=== PATIENT | male | born 1975 | race Caucasian/White ===

== ENCOUNTER 2021-05-02 18:07 | Inpatient (IN) | payer OTHER, SELFPAY ==
[2021-05-02 23:23] VITALS: BMI 40.5
--- NOTE | 2021-05-03 00:44 | PC.ADMIT ---
A white, male patient aged 45 years was admitted to the [facility] as a CV at 1800 following referral from [facility] ED and [facility] Crisis. Pt hs no previous admissions here, but has numerous admissions elsewhere including: [facility], [facility], [facility], [facility], [facility], [place], and [facility]. Pt has a Briceño order that on April 14 2021. Pt self-presented to [facility] ED on 04/29/21 endorsing command AH telling him to hurt others and then hurt himself. Pt endorsed HI towards one of his two roommates, with thoughts to kill this person with a knife. Pt expressed thoughts to kill self via overdose of prescribed medications. Pt reported noncompliance with medications of several days; pt's VNA reported last medications administered evening of 04/27 and morning of 04/28/21. Pt is on Clozaril 350mg PO HS and Invega Sustenna 234mg IM Q4wks. Pt stated he will take Clozaril if it is ordered here, but he will not take it in the community. Pt stated he doesn't like Clozaril because it makes him feel tired and week . Pt stated that seroquel also makes him feel fatigued and flat. Other areas of [facility] assessment indicate pt may have not taken meds for several weeks . Pt was recently in [facility], spent 2 months in respite and was placed in the apartment with roommates. Pt reported that his mother is dying and that this is a recent stressor that has increased his symptoms of depression. Pt has a history of incarceration for A&B many times and related drug charges. Pt was incarcerated for assault and battery with a dangerous weapon (knife). Pt had probation in 2016, but denies current legal involvement. Pt has a history of Etoh, cocaine, opiates, marijuana; CABELLO and BAL were negative and pt denies current use. No history of substance abuse programs. Pt has a history of command AH/VH to hurt others and a history of delusions and grandeur. Pt has past history of delusions involving babies. Pt has a history of decompensating quickly when stopping medications. Pt was calm and cooperative during admission. When asked about goals for discharge pt stated he doesn't want to d/c to the community, but prefers d/c to a [facility] because it's better than here . Medical history includes diabetes and HTN. Pt was placed on 15 minute safety checks upon arrival and is resting in his bedroom at this time. [id number] done, initial treatment plan done and admission orders obtained.
--- NOTE | 2021-05-03 10:27 | HO.PSYADMNOT ---
HPI Date of Service: 05/03/21 Chief Complaint: bipolar disorder Sources of Information: patient interviewed, chart reviewed and crisis/core team assessment reviewed HPI Subjective Notes: Uribe Warning and Conditional Voluntary Narrative: Patient is a 45-year-old male with history of schizophrenia and antisocial personality disorder, on a Community Briceño, hx of assaultive behavior, incarceration and history of admission to [facility] Who presents for command auditory hallucinations to hurt others and hurt himself with HI towards his roommate in the face of being off his medications for several days. Patient reports that he was assigned this living situation by his PACT team Where his 2 roommates Heavily abuse crack cocaine. This past weekend as they ran out of money, they tried to force him to use his own money to buy them cocaine; when he refused they somehow made him leave the apartment in stool his belongings. Because patient has a VNA, he was unable to get his medications and has since been without. After a few days off medications patient soon developed auditory hallucinations. Patient started having homicidal ideations to stab his roommate and then kill himself. Patient currently endorses HI and AVH; however SI has now resolved. He wants to get back on his medications. He is ambivalent about being on clozapine because he says that it is given to him around 17:00 which makes him very tired and unable to enjoy the rest of the evening; however he is willing to get back on it after magazine writer expressed his outpatient psychiatrist is concerns. Patient said that he does not want to go back to his living situation and says that he will hurt his roommate if he does go back there. Patient says that instead he wants to go to a state facility, such as [facility]. Patient also says that he will make, Homicidal threats an order to get back into a state institution; he implies that Such comments are for secondary gain But also true. Patient says that on the unit he is safe and he has no intention or plans of hurting anyone. He also says that his HI is only directed to a specific person. Patient does point out that when threatened by his roommates he did not retaliate but got himself to walk away and that he self presented to the ED, wanting help, demonstrating that he is overall doing better than he has in the past. Past Psychiatric History: [facility] admission PACT team outpt psychiatrist Dr. Marisabel Briceño order numerous inpt psych admissions Medical Evaluation Reviewed: Hospitalist Liana Pending [facility] Medical History (Updated 05/03/21 @ 17:37 by Roni Sexton MD) Antisocial personality disorder Schizophrenia, paranoid type Family History: Deferred Social History: Born and raised in [place] and lived with biological mother, stepfather and half brothers Completed the 10th grade No history of work Some history of living in foster care Substance History: History of alcohol, cocaine and opiate up abuse; currently sober from all substances Trauma History: Patient did not want to discuss Diagnostics Vital Signs (24Hr): BMI result Body Mass Index 40.5 EKG EKG: reviewed EKG Comment: qtc WNL Meds/Allergies Meds Home Medications Acetaminophen (Acetaminophen 325 Mg Tablet) 650 mg PO Q6H PRN PRN Reason: Headache/Pain Mild Scale (1-3) Al Hydroxide/Mg Hydroxide (Magnesium Hydrox/Alum Hydrox 30 Ml Oral.Susp) 30 ml PO Q6H PRN PRN Reason: Heartburn/Nausea Atorvastatin Calcium (Atorvastatin Calcium 10 Mg Tablet) 10 mg PO DAILY GUSTAVO Benztropine Mesylate (Benztropine Mesylate 1 Mg Tablet) 2 mg PO BEDTIME GUSTAVO Benztropine Mesylate (Benztropine Mesylate 1 Mg Tablet) 1 mg PO BID PRN PRN Reason: EPS Clozapine (Clozapine 25 Mg Tablet) 12.5 mg PO BID GUSTAVO Cyanocobalamin (Cyanocobalamin (Vitamin B-12) 1,000 Mcg/Ml Vial) 1,000 mcg IM Q30D GUSTAVO Diphenhydramine HCl (Diphenhydramine Hcl 25 Mg Tablet) 50 mg PO Q4H PRN PRN Reason: agitation Fenofibrate (Fenofibrate 160 Mg Tablet) 160 mg PO DAILY GUSTAVO Folic Acid (Folic Acid 1 Mg Tablet) 4 mg PO DAILY GUSTAVO Haloperidol (Haloperidol 5 Mg Tablet) 5 mg PO Q4H PRN PRN Reason: agitation Hydroxyzine HCl (Hydroxyzine Hcl 25 Mg Tablet) 25 mg PO BEDTIME PRN PRN Reason: Anxiety Coachella Carbonate (Coachella Carbonate Er 450 Mg Tablet.Er) 450 mg PO BID GUSTAVO Loratadine (Loratadine 10 Mg Tablet) 10 mg PO DAILY GUSTAVO Lorazepam (Lorazepam 1 Mg Tablet) 2 mg PO Q4H PRN PRN Reason: agitation Magnesium Hydroxide (Milk Of Magnesia 30 Ml Oral.Susp) 30 ml PO DAILY PRN PRN Reason: Constipation Metformin HCl (Metformin Hcl 500 Mg Tablet) 500 [facility] Last Admin: 05/03/21 17:35 Dose: 500 mg Documented by: Multivitamins/Vitamin C (Multivitamin Tablet) 1 tab PO DAILY GUSTAVO Omeprazole (Omeprazole 20 Mg Capsule.Dr) 20 mg PO DAILY@0630 GUSTAVO Trazodone HCl (Trazodone Hcl 50 Mg Tablet) 50 mg PO BEDTIME PRN PRN Reason: Insomnia Valproic Acid (Valproic Acid 250 Mg Capsule) 250 mg PO DAILY GUSTAVO Valproic Acid (Valproic Acid 250 Mg Capsule) 500 mg PO BEDTIME GUSTAVO Allergies Allergies Allergy/AdvReac Type Severity Reaction Status Date / Time fluoxetine [From Prozac] AdvReac Agitated Verified 05/02/21 23:37 Mental Status Exam Mental Status Exam Narrative: Pt is alert and oriented; behavior is cooperative and calm; patient is not in distress; dressed in casual attire, obese, unkempt but adequate hygiene; mood is described as ok and affect mildly irritable; eye contact appropriate; Speech is normal rate, volume and prosody and not pressured; no psychomotor agitation/retardation present; right hand tremor noticeable as is symptoms of perioral TD; thought process is organized and goal directed; Thought content is Anger towards roommate, where he is going to live, treatment; otherwise pertinent to relevant topics; No delusional content expressed; Positive for homicidal ideation towards roommate with expressed intentions; patient endorses auditory hallucinations, command in nature; Patients insight and judgment Are impaired Assessment & Plan Assessment & Plan (1) Schizophrenia, paranoid type: Status: Acute Code(s): F20.0 - Paranoid schizophrenia (2) Antisocial personality disorder: Status: Acute Code(s): F60.2 - Antisocial personality disorder Plan Patient is a 45-year-old male with history of schizophrenia and antisocial personality disorder, on a Community Briceño, hx of assaultive behavior, incarceration and history of admission to [facility] Who presents for command auditory hallucinations to hurt others and hurt himself with HI towards his roommate in the face of being off his medications for several days. -seems the patient is off his meds through no fault of his own, being pushed out of his living situation by his roommates demanded he give the money for crack cocaine; once homeless he lost access to his VNA -currently patient has HI and command auditory hallucinations. He says he will be safe on the unit has no intention of hurting anyone here and that his AHI is specific towards his roommate -He agrees to restart his medications; he is ambivalent about clozapine however agrees to continue but asks if he can be transferred to evening time so that he is not sedated during the day. -magazine writer talked to Dr. Zohra donaldson who reports that on medications patient Has been successful in the community however off his medications he can be dangerous PLAN: CV Q 15 minute checks MEDS: Restart Depakote: Will start Depakote immediate release To 50 mg in the a.m. and 500 mg Q.h.s. -Need to find out if it is long-acting -home dose 250mg AM and 1500mg qhs Restart lithium ER 450 mg b.i.d. -home dose is 300 mg q.a.m. and 750 mg q.h.s. Restart clozapine 12.5 mg b.i.d. and titrate to home dose; If tolerates will titrate as quickly as patient can as he has only been off for few days -home dose to 50 mg q.h.s. -and see q.weekly for now but likely can quickly go back to either q.2 weeks or Q monthly Continue Invega Sustenna 234 mg q.4 weeks; Not sure when next due Continue Cogentin 2 mg q.h.s. new Continue trazodone 50 mg q.h.s. p.r.n. Continue Cyanocobalamin, loratadine, folic acid, phenyl fibrate Continue atorvastatin Continue omeprazole continue metformin 500 mg b.i.d. Labs from [facility] reviewed CBC, BUN/creatinine, calcium, lytes, LFTs all grossly within normal limits with some mild-mod normocytic anemia Valproic acid a 0.0 Coachella level 0.3 COVID negative Patient educated on: diagnosis, medication risk/benefits and substance abuse Informed Consent: understands Reason for continued inpatient stay Substantial Risk for: harm to self, harm to others and rapid decompensation
--- NOTE | 2021-05-03 11:12 | P.CONHOSP_ITS ---
History of Present Illness Data of Consult Service Date: 05/03/21 Primary Care Provider: Unknown Physician HPI Reason for consult: Routine Medical H&P This is a 45 yo M admitted to the inpatient psych unit. Medical consult requested for routine medical H&P per protocol. Patient is seen and examined in the exam room. They deny any medical complaints at this time. PMH Pre-diabetes -- reports he take metformin PSH Explatory laparotomy with bowel resection after he swallowed a razor FH He is unaware of any medical problems in the family SH Denies tobacco, alcohol or illicit substance use Review of Systems Review of Systems: negative except HPI PMFSH Social History Household Members: Other Household Members Other:: apartment with 2 room mates Housing: Apartment Do you presently have visiting nurse or other home services: Yes Patient Tobacco Use Status: Former Tobacco user Quit Date: over 1 year ago Tobacco use type: Cigarette Smoked in Last 30 Days: Yes e-Cigarette/Vaping Use: Never Used Patient Interested in Nicotine Replacement: No (pt declines) Patient Given Instructions on How to Stop Smoking: No Date Education Initiated: 05/02/21 Second Hand Smoke Exposure: Yes Use of substances other than those prescribed or required for medical reasons: No Last Used Substance: Unknown Currently Displaying Signs/Symptoms of Drug Intoxication Withdrawal: No Any prior treatment program specific to substance use: No (unknown) Have you been hit, kicked, punched, or otherwise hurt by someone within the past year? If so, by whom?: No Do you feel safe in your current relationship?: No Current Relationship Is there a partner from a previous relationship who is making you feel unsafe now?: No Are you made to feel afraid or neglected: No Spiritual Healthcare Practices: None Zoroastrian Healthcare Practices: None Cultural Healthcare Practices: None Advance Directives: No Advance Directives Information Provided: No Advance Directives on File: No Do you have thoughts of harming others: None Do you have a plan to hurt others: No Plan Recently lost weight without trying: No Eating poorly because of decreased appetite: No Nutrition Risks: No Nutritional Risk Poor oral hygiene: Yes Meds Allergies Allergy/AdvReac Type Severity Reaction Status Date / Time fluoxetine [From Prozac] AdvReac Agitated Verified 05/02/21 23:37 Active Medications: Current Medications Acetaminophen (Acetaminophen 325 Mg Tablet) 650 mg PO Q6H PRN PRN Reason: Headache/Pain Mild Scale (1-3) Al Hydroxide/Mg Hydroxide (Magnesium Hydrox/Alum Hydrox 30 Ml Oral.Susp) 30 ml PO Q6H PRN PRN Reason: Heartburn/Nausea Diphenhydramine HCl (Diphenhydramine Hcl 25 Mg Tablet) 50 mg PO Q4H PRN PRN Reason: agitation Haloperidol (Haloperidol 5 Mg Tablet) 5 mg PO Q4H PRN PRN Reason: agitation Hydroxyzine HCl (Hydroxyzine Hcl 25 Mg Tablet) 25 mg PO BEDTIME PRN PRN Reason: Anxiety Lorazepam (Lorazepam 1 Mg Tablet) 2 mg PO Q4H PRN PRN Reason: agitation Magnesium Hydroxide (Milk Of Magnesia 30 Ml Oral.Susp) 30 ml PO DAILY PRN PRN Reason: Constipation Trazodone HCl (Trazodone Hcl 50 Mg Tablet) 50 mg PO BEDTIME PRN PRN Reason: Insomnia Physical Exam Vital Signs and Narrative: Vital Signs: BMI result Body Mass Index 40.5 Const: Other: General - no acute distress, appears comfortable Cardiovascular - regular rate and rhythm, S1-S2 Lungs - normal respiratory effort, clear to auscultation bilaterally, no wheezing Abdomen - soft, nontender, no rebound or guarding Extremities - no edema bilaterally Neuro - awake and alert, no focal deficits; cn 2-12 in tact bilaterally Assessment and Plan (1) Routine medical exam: Status: Acute Plan Medical consultation sought for routine medical H&P. Patient has no active medical issues. Reports pre-diabetes, on metformin -- unclear how long he has been taking it. Would recommend to check A1C and start metformin at his home dose. Patient has been counseled on age appropriate health maintenance as an outpatient. Continue care per primary team. Will sign off. Please re-consult if any issues arise.
[2021-05-03] MEDS: Valproic Acid 250 MG CAPSULE PO (14:32)
[2021-05-03] MEDS: Lithium Carbonate ER 450 MG TABLET.ER PO ×2 (14:32→19:46)
[2021-05-03] MEDS: metFORMIN HCl 500 MG TABLET PO (17:35)
[2021-05-03 17:54] LABS: MANUAL DIFF FLAG NO
[2021-05-03 17:55] LABS: Basophils Percent Auto 0.4 % (0-2); Eosinophils Absolute Auto 0.2 X10*3/uL (0.0-0.4); Eosinophils Percent Auto 1.4 % (0-4); Hematocrit 37.3 % (42.0-52.0); Hemoglobin 11.7 g/dl (14.0-18.0); Imm Gran Abs Auto 0.06 X10*3/uL (0.00-0.03); Imm Gran Pct Auto 0.5 % (0.0-0.4); Lymphocytes Percent Auto 27.1 % (20-40); Mean Corpuscular HGB Conc 31.4 g/dl (31.0-36.0); Mean Corpuscular Hemoglobin 26.9 pg (27.0-33.0); Mean Corpuscular Volume 85.7 fL (80.0-98.0); Mean Platelet Volume 10.2 fL (9.4-12.4); Monocytes Absolute Auto 0.7 X10*3/uL (0.1-1.2); Monocytes Percent Auto 6.1 % (2-11); Neutrophils Absolute Auto 7.1 x10*3/uL (2.0-8.3); Neutrophils Percent Auto 64.5 % (45-73); Platelet Count 291 X10*3/uL (160-400); Red Blood Count 4.35 X10*6/uL (4.60-5.80); Red Cell Distribution Width 15.4 % (11.0-16.0); White Blood Count 11.1 X10*3/uL (4.8-10.8)
[2021-05-03 19:00] VITALS: BP 123/59; PULSE 117; TEMP 36.2; O2SAT 94
[2021-05-03] MEDS: Valproic Acid 250 MG CAPSULE 500 MG PO (19:45)
[2021-05-03] MEDS: cloZAPine 25 MG TABLET 12.5 MG PO (19:45)
[2021-05-03] MEDS: Benztropine Mesylate 1 MG TABLET 2 MG PO (19:46)
[2021-05-03] MEDS: Acetaminophen 325 MG TABLET 650 MG PO (19:47)
[2021-05-03] MEDS: traZODone HCL 50 MG TABLET PO (19:50)
[2021-05-04 06:00] VITALS: BP 152/73; PULSE 106; RESP 16; TEMP 36.5; O2SAT 98
[2021-05-04] MEDS: Omeprazole 20 MG CAPSULE.DR PO (06:39)
[2021-05-04 07:00] VITALS: BMI 39.2
[2021-05-04] MEDS: Valproic Acid 250 MG CAPSULE PO (09:07)
[2021-05-04] MEDS: Folic Acid 1 MG TABLET 4 MG PO (09:07)
[2021-05-04] MEDS: metFORMIN HCl 500 MG TABLET PO (09:07)
[2021-05-04] MEDS: Lithium Carbonate ER 450 MG TABLET.ER PO (09:07)
[2021-05-04] MEDS: Multivitamin TABLET 1 TAB PO (09:07)
[2021-05-04] MEDS: cloZAPine 25 MG TABLET 12.5 MG PO (09:07)
[2021-05-04] MEDS: Fenofibrate 160 MG TABLET PO (09:07)
[2021-05-04] MEDS: Loratadine 10 MG TABLET PO (09:07)
[2021-05-04] MEDS: Atorvastatin Calcium 10 MG TABLET PO (09:08)
[2021-05-04 09:30] LABS: Alanine Aminotransferase 45 U/L (0-40); Albumin Level 4.6 g/dL (3.5-5.0); Alkaline Phosphatase 49 U/L (39-117); Anion Gap 15 (12-20); Aspartate Amino Transferase 33 U/L (5-37); Bilirubin Total 0.2 mg/dL (0.0-1.0); Blood Urea Nitrogen 16 mg/dL (9-16); Calcium 10.3 mg/dL (8.4-10.2); Carbon Dioxide 24 mmol/L (22-29); Chloride 107 mmol/L (96-108); Cholesterol 137 mg/dL; Creatinine Clr Calc Pharmacy 162.2; Estimated Glomerular Filt Rate > 60; Glucose Fasting 104 mg/dL (60-99); HDL Cholesterol 34 mg/dL; LDL Cholesterol Calculated 50 mg/dl; Potassium 4.8 mmol/L (3.3-5.1); Sodium 141 mmol/L (135-145); Total Protein 7.6 g/dL (6.5-8.0); Triglycerides 266 mg/dL
--- NOTE | 2021-05-04 10:21 | P.PNPSI_ITS ---
Subjective Subjective Date of Service: 05/04/21 Reason For Visit: bipolar disorder Interim History: Patient tells bid writer that he is going to refuse all his medications. Patient expressed being off put by having a blood draw and also by having a.m. clozapine scheduled and the idea that it is only for titration purposes and will be switched to bedtime, would not ameliorate. He says he wants to have a chance to see how he does off medications for a while. Log Tumbler discussed how patient's outpatient team who knows him well and some move known him for years collectively agree that when patient is off the specific medications, he quickly decompensates and things do not go well. He says all the same he wants to be off medications and that he is going to put in a 3 day notice. He said maybe it will be a diving judge from out of state who does not care about the community and will let go a homicidal maniac. Patient still harbors homicidal Plans towards his apartment roommate Who reportedly kicked him out for not coalescing and buying drugs. Log Tumbler again reiterated his history of medications and patient said he will consider it may be continuing but he does not think so. +AH; not suicidal Mental Status Exam Mental Status Exam Narrative: Pt is alert and oriented; behavior is cooperative and calm; patient is not in distress; dressed in hospital gown, obese, unkempt but adequate hygiene; mood is described as ok and affect a little expansive; eye contact appropriate; Speech is normal rate, volume and prosody and not pressured; no psychomotor agitation/retardation present; right hand tremor noticeable as is symptoms of jennifer-oral TD;? thought process is organized and goal directed; Thought content is anger towards roommate, not wanting medicatons; otherwise pertinent to releva nt topics; No delusional content expressed; Positive for homicidal ideation towards roommate with expressed intentions; no SI; patient endorses auditory hallucinations, command in nature;? Patients insight and judgment Are impaired Diagnostics Vital Signs (24Hr): Vital Signs - 24 hr 05/03/21 19:00 05/04/21 06:00 Temperature 97.1 F 97.7 F Pulse Rate 117 H 106 H Respiratory Rate 16 Blood Pressure 123/59 L 152/73 H Pulse Oximetry 94 98 BMI result Body Mass Index 40.5 Labs Results: 05/03/21 17:43 05/04/21 08:05 Labs: Laboratory Results - last 48 hr 05/03/21 05/04/21 17:43 08:05 WBC 11.1 H RBC 4.35 L Hgb 11.7 L Hct 37.3 L MCV 85.7 MCH 26.9 L MCHC 31.4 RDW 15.4 Plt Count 291 MPV 10.2 Immature Gran % (Auto) 0.5 H Neut % (Auto) 64.5 Lymph % (Auto) 27.1 [place] % (Auto) 6.1 Eos % (Auto) 1.4 Baso % (Auto) 0.4 Lymph # (Auto) 3.0 [place] # (Auto) 0.7 Eos # (Auto) 0.2 Baso # (Auto) 0.0 Abs Immat Gran (auto) 0.06 H Absolute Neuts (auto) 7.1 Absolute Nucleated RBC 0.000 Nucleated RBC % (auto) 0.0 Sodium 141 Potassium 4.8 Chloride 107 Carbon Dioxide 24 Anion Gap 15 BUN 16 Creatinine 0.82 Estim Creat Clear Calc 162.2 Estimated GFR > 60 Fasting Glucose 104 H Calcium 10.3 H Total Bilirubin 0.2 AST 33 ALT 45 H Alkaline Phosphatase 49 Total Protein 7.6 Albumin 4.6 Triglycerides 266 Cholesterol 137 LDL Cholesterol, Calc 50 HDL Cholesterol 34 Medications Medications Current Medications Acetaminophen (Acetaminophen 325 Mg Tablet) 650 mg PO Q6H PRN PRN Reason: Headache/Pain Mild Scale (1-3) Last Admin: 05/03/21 19:47 Dose: 650 mg Documented by: Al Hydroxide/Mg Hydroxide (Magnesium Hydrox/Alum Hydrox 30 Ml Oral.Susp) 30 ml PO Q6H PRN PRN Reason: Heartburn/Nausea Atorvastatin Calcium (Atorvastatin Calcium 10 Mg Tablet) 10 mg PO DAILY [facility] Last Admin: 05/04/21 09:08 Dose: 10 mg Documented by: Benztropine Mesylate (Benztropine Mesylate 1 Mg Tablet) 2 mg PO BEDTIME [facility] Last Admin: 05/03/21 19:46 Dose: 2 mg Documented by: Benztropine Mesylate (Benztropine Mesylate 1 Mg Tablet) 1 mg PO BID PRN PRN Reason: EPS Clozapine (Clozapine 25 Mg Tablet) 12.5 mg PO DAILY [facility] Clozapine (Clozapine 25 Mg Tablet) 25 mg PO BEDTIME [facility] Cyanocobalamin (Cyanocobalamin (Vitamin B-12) 1,000 Mcg/Ml Vial) 1,000 mcg IM Q30D [facility] Diphenhydramine HCl (Diphenhydramine Hcl 25 Mg Tablet) 50 mg PO Q4H PRN PRN Reason: agitation Fenofibrate (Fenofibrate 160 Mg Tablet) 160 mg PO DAILY [facility] Last Admin: 05/04/21 09:07 Dose: 160 mg Documented by: Folic Acid (Folic Acid 1 Mg Tablet) 4 mg PO DAILY [facility] Last Admin: 05/04/21 09:07 Dose: 4 mg Documented by: Haloperidol (Haloperidol 5 Mg Tablet) 5 mg PO Q4H PRN PRN Reason: agitation Hydroxyzine HCl (Hydroxyzine Hcl 25 Mg Tablet) 25 mg PO BEDTIME PRN PRN Reason: Anxiety Zebulon Carbonate (Zebulon Carbonate Er 450 Mg Tablet.Er) 450 mg PO BID [facility] Last Admin: 05/04/21 09:07 Dose: 450 mg Documented by: Loratadine (Loratadine 10 Mg Tablet) 10 mg PO DAILY [facility] Last Admin: 05/04/21 09:07 Dose: 10 mg Documented by: Lorazepam (Lorazepam 1 Mg Tablet) 2 mg PO Q4H PRN PRN Reason: agitation Magnesium Hydroxide (Milk Of Magnesia 30 Ml Oral.Susp) 30 ml PO DAILY PRN PRN Reason: Constipation Metformin HCl (Metformin Hcl 500 Mg Tablet) 500 mg PO BIDWM [facility] Last Admin: 05/04/21 09:07 Dose: 500 mg Documented by: Multivitamins/Vitamin C (Multivitamin Tablet) 1 tab PO DAILY [facility] Last Admin: 05/04/21 09:07 Dose: 1 tab Documented by: Omeprazole (Omeprazole 20 Mg Capsule.) 20 mg PO DAILY@0630 [facility] Last Admin: 05/04/21 06:39 Dose: 20 mg Documented by: Paliperidone Palmitate (Paliperidone Palmitate 234 Mg/1.5 Ml Syringe) 234 mg IM Q30D [facility] Trazodone HCl (Trazodone Hcl 50 Mg Tablet) 50 mg PO BEDTIME PRN PRN Reason: Insomnia Last Admin: 05/03/21 19:50 Dose: 50 mg Documented by: Valproic Acid (Valproic Acid 250 Mg Capsule) 250 mg PO DAILY [facility] Last Admin: 05/04/21 09:07 Dose: 250 mg Documented by: Valproic Acid (Valproic Acid 250 Mg Capsule) 500 mg PO BEDTIME [facility] Last Admin: 05/03/21 19:45 Dose: 500 mg Documented by: Allergies Allergies Allergy/AdvReac Type Severity Reaction Status Date / Time fluoxetine [From Prozac] AdvReac Agitated Verified 05/02/21 23:37 Assessment & Plan Assessment & Plan (1) Schizophrenia, paranoid type: Status: Acute Code(s): F20.0 - Paranoid schizophrenia (2) Antisocial personality disorder: Status: Acute Code(s): F60.2 - Antisocial personality disorder Plan Patient is a 45-year-old male with history of schizophrenia and antisocial personality disorder, on a Community Briceño, hx of assaultive behavior, incarceration and history of admission to [facility] Who presents for command auditory hallucinations to hurt others and hurt himself with HI towards his roommate in the face of being off his medications for several days. -seems the patient is off his meds through no fault of his own, being pushed out of his living situation by his roommates demanded he give the money for crack cocaine; once homeless he lost access to his VNA -currently patient has HI and command auditory hallucinations. He says he will be safe on the unit has no intention of hurting anyone here and that his HI is specific towards his roommate -He agrees to restart his medications; he is ambivalent about clozapine however agrees to continue but asks if he can be transferred to evening time so that he is not sedated during the day. -bid writer talked to Dr. Zohra donaldson who reports that on medications patient Has been successful in the community however off his medications he can be dangerous 05/04 Patient says he is going to refuse all his medication; remains with HI towards apartment-mate; Present -continuing to seek collateral from outpatient providers and providers who cared for patient while at [facility]; have several calls placed to outpatient VNA/pact team Rosalie [phone] PLAN: 3 day notice Q 15 minute checks MEDS: Restart Depakote: Will start Depakote immediate release -Need to find out if it is long-acting -home dose 250mg AM and 1500mg qhs Restart lithium ER 450 mg b.i.d. -home dose is 300 mg q.a.m. and 750 mg q.h.s. Change clozapine 25mg Qhs (pt does not want in AM since makes drowsy); if takes and tolerates will titrate as quickly as patient can as he has only been off for few days -home dose to 50 mg q.h.s. -and see q.weekly for now but likely can quickly go back to either q.2 weeks or Q monthly Continue Invega Sustenna 234 mg q.4 weeks; Not sure when next due Continue Cogentin 2 mg q.h.s. new Continue trazodone 50 mg q.h.s. p.r.n. Continue Cyanocobalamin, loratadine, folic acid, phenyl fibrate Continue atorvastatin Continue omeprazole continue metformin 500 mg b.i.d. Labs from [facility] reviewed CBC, BUN/creatinine, calcium, lytes, LFTs all grossly within normal limits with some mild-mod normocytic anemia Valproic acid a 0.0 Zebulon level 0.3 COVID negative I spent minutes with the patient and/or on the patient floor today, greater than?50% of which was spent counseling/coordinating care. Patient educated on: diagnosis and medication risk/benefits Informed Consent: understands Reason for contiued inpatient stay Substantial Risk for: harm to others and rapid decompensation
--- NOTE | 2021-05-04 13:29 | PC.NURSE ---
Pt signed a 3-day notice on May 04 (05/04/2021) and it will be up on May 09 (05/09/2021)
[2021-05-04 20:01] VITALS: BP 113/67; PULSE 98; RESP 17; TEMP 36.3; O2SAT 97
[2021-05-05] MEDS: Acetaminophen 325 MG TABLET 650 MG PO ×2 (02:02→21:28)
[2021-05-05 06:00] VITALS: BP 117/75; PULSE 97; TEMP 36.4; O2SAT 97
--- NOTE | 2021-05-05 13:30 | HO.PSYCHPN ---
Subjective Subjective Date of Service: 05/05/21 Reason For Visit: bipolar disorder Subjective Notes: Briceño Order, Conditional Voluntary and 3 Day Medical Problems Affecting Mental Status: No Interim History: Patient's case extensively and repeatedly reviewed with staff Dr. Sexton. The patient has been refusing clozapine lithium and Depakote. Unclear when he last had an injection Invega there is contradictory information. The patient has been stating that God is telling him he does need to be on medication he was not threatening or agitated when seen. Patient did eventually take a dose of consolidated Depakote the afternoon history of severe violence aggression when off of mood stabilizing agents and antipsychotics. Patient reportedly responds best to a combination of clozapine and mood stabilizing agents Medication Compliance: Intermittent Side effects from medications: No Attending Groups: No Review of Systems Acute medical concerns: No Mental Status Exam Mental Status Exam Patient Appearance: Disheveled Patient Orientation: Person, Place and Situation Level of Consciousness: Awake Patient Behavior: Talkative Mood Description: Constricted, Blunted and Apprehensive Affect Description: Blunted Delusions: Bizarre (God is telling him he does not need to take medication) Thought Process: Illogical and Linear Thought Content: positive for Poverty of Content, positive for Suicidal Ideation (Denies current) and positive for Homicidal Ideation (Denies currently) Judgement: Poor Judgement and Insight: Mild oral facial dyskinesia noted patient aware has Briceño order states he does not need to be on medication Diagnostics Vital Signs (24Hr): Vital Signs - 24 hr 05/04/21 20:01 05/05/21 06:00 Temperature 97.3 F 97.5 F Pulse Rate 98 97 Respiratory Rate 17 Blood Pressure 113/67 117/75 Pulse Oximetry 97 97 BMI result Body Mass Index 39.2 Labs Results: 05/03/21 17:43 05/04/21 08:05 Labs: Laboratory Results - last 48 hr 05/03/21 05/04/21 17:43 08:05 WBC 11.1 H RBC 4.35 L Hgb 11.7 L Hct 37.3 L MCV 85.7 MCH 26.9 L MCHC 31.4 RDW 15.4 Plt Count 291 MPV 10.2 Immature Gran % (Auto) 0.5 H Neut % (Auto) 64.5 Lymph % (Auto) 27.1 [place] % (Auto) 6.1 Eos % (Auto) 1.4 Baso % (Auto) 0.4 Lymph # (Auto) 3.0 [place] # (Auto) 0.7 Eos # (Auto) 0.2 Baso # (Auto) 0.0 Abs Immat Gran (auto) 0.06 H Absolute Neuts (auto) 7.1 Absolute Nucleated RBC 0.000 Nucleated RBC % (auto) 0.0 Sodium 141 Potassium 4.8 Chloride 107 Carbon Dioxide 24 Anion Gap 15 BUN 16 Creatinine 0.82 Estim Creat Clear Calc 162.2 Estimated GFR > 60 Fasting Glucose 104 H Calcium 10.3 H Total Bilirubin 0.2 AST 33 ALT 45 H Alkaline Phosphatase 49 Total Protein 7.6 Albumin 4.6 Triglycerides 266 Cholesterol 137 LDL Cholesterol, Calc 50 HDL Cholesterol 34 Medications Medications Current Medications Acetaminophen (Acetaminophen 325 Mg Tablet) 650 mg PO Q6H PRN PRN Reason: Headache/Pain Mild Scale (1-3) Last Admin: 05/05/21 02:02 Dose: 650 mg Documented by: Al Hydroxide/Mg Hydroxide (Magnesium Hydrox/Alum Hydrox 30 Ml Oral.Susp) 30 ml PO Q6H PRN PRN Reason: Heartburn/Nausea Atorvastatin Calcium (Atorvastatin Calcium 10 Mg Tablet) 10 mg PO DAILY [facility] Last Admin: 05/05/21 08:47 Dose: Not Given Documented by: Benztropine Mesylate (Benztropine Mesylate 1 Mg Tablet) 2 mg PO BEDTIME [facility] Last Admin: 05/04/21 20:15 Dose: Not Given Documented by: Benztropine Mesylate (Benztropine Mesylate 1 Mg Tablet) 1 mg PO BID PRN PRN Reason: EPS Clozapine (Clozapine 25 Mg Tablet) 25 mg PO BEDTIME [facility] Last Admin: 05/04/21 20:15 Dose: Not Given Documented by: Cyanocobalamin (Cyanocobalamin (Vitamin B-12) 1,000 Mcg/Ml Vial) 1,000 mcg IM Q30D [facility] Diphenhydramine HCl (Diphenhydramine Hcl 25 Mg Tablet) 50 mg PO Q4H PRN PRN Reason: agitation Divalproex Sodium (Divalproex Sodium Er 500 Mg Tab.Er.24h) 1,000 mg PO DAILY@1300 [facility] Fenofibrate (Fenofibrate 160 Mg Tablet) 160 mg PO DAILY [facility] Last Admin: 05/05/21 08:47 Dose: Not Given Documented by: Folic Acid (Folic Acid 1 Mg Tablet) 4 mg PO DAILY [facility] Last Admin: 05/05/21 08:47 Dose: Not Given Documented by: Haloperidol (Haloperidol 5 Mg Tablet) 10 mg PO Q4H PRN PRN Reason: agitation Hydroxyzine HCl (Hydroxyzine Hcl 25 Mg Tablet) 25 mg PO BEDTIME PRN PRN Reason: Anxiety Crumpler Carbonate (Crumpler Carbonate Er 450 Mg Tablet.Er) 450 mg PO BID [facility] Last Admin: 05/05/21 08:47 Dose: Not Given Documented by: Loratadine (Loratadine 10 Mg Tablet) 10 mg PO DAILY [facility] Last Admin: 05/05/21 08:47 Dose: Not Given Documented by: Lorazepam (Lorazepam 1 Mg Tablet) 2 mg PO Q4H PRN PRN Reason: agitation Magnesium Hydroxide (Milk Of Magnesia 30 Ml Oral.Susp) 30 ml PO DAILY PRN PRN Reason: Constipation Metformin HCl (Metformin Hcl 500 Mg Tablet) 500 mg PO BIDWM [facility] Last Admin: 05/05/21 08:47 Dose: Not Given Documented by: Multivitamins/Vitamin C (Multivitamin Tablet) 1 tab PO DAILY [facility] Last Admin: 05/05/21 08:47 Dose: Not Given Documented by: Olanzapine (Olanzapine 10 Mg Tablet) 20 mg PO BID PRN PRN Reason: agitation Omeprazole (Omeprazole 20 Mg Capsule.) 20 mg PO DAILY@0630 [facility] Last Admin: 05/05/21 06:29 Dose: Not Given Documented by: Paliperidone Palmitate (Paliperidone Palmitate 234 Mg/1.5 Ml Syringe) 234 mg IM Q30D [facility] Trazodone HCl (Trazodone Hcl 50 Mg Tablet) 50 mg PO BEDTIME PRN PRN Reason: Insomnia Last Admin: 05/03/21 19:50 Dose: 50 mg Documented by: Allergies Allergies Allergy/AdvReac Type Severity Reaction Status Date / Time fluoxetine [From Prozac] AdvReac Agitated Verified 05/02/21 23:37 Assessment & Plan Assessment & Plan (1) Schizophrenia, paranoid type: Status: Acute Code(s): F20.0 - Paranoid schizophrenia Assessment and Plan: Patient when seen not threatening or aggressive but marked lack of insight into need for treatment. Reported history obtained by Dr. Sexton suggest patient rapidly becomes wanted to move medication and for history of extreme violence and paranoia and assaultive behavior. Case reviewed repeatedly consolidated Depakote and lithium doses medication to be given IM if patient refuses lithium Depakote or clozapine. Need clarifying information is as possible when patient's last dose of long-acting Invega was given safety issues reviewed with nursing staff and other psychiatric staff (2) Antisocial personality disorder: Status: Acute Code(s): F60.2 - Antisocial personality disorder Plan Patient is a 45-year-old male with history of schizophrenia and antisocial personality disorder, on a Community Briceño, hx of assaultive behavior, incarceration and history of admission to [facility] Who presents for command auditory hallucinations to hurt others and hurt himself with HI towards his roommate in the face of being off his medications for several days. -seems the patient is off his meds through no fault of his own, being pushed out of his living situation by his roommates demanded he give the money for crack cocaine; once homeless he lost access to his VNA -currently patient has HI and command auditory hallucinations. He says he will be safe on the unit has no intention of hurting anyone here and that his AHI is specific towards his roommate -He agrees to restart his medications; he is ambivalent about clozapine however agrees to continue but asks if he can be transferred to evening time so that he is not sedated during the day. -telegraphic typewriter mechanic talked to Dr. Zohra donaldson who reports that on medications patient Has been successful in the community however off his medications he can be dangerous Rosalie [phone] PLAN: CV Q 15 minute checks MEDS: Restart Depakote: Will start Depakote immediate release To 50 mg in the a.m. and 500 mg Q.h.s. -Need to find out if it is long-acting -home dose 250mg AM and 1500mg qhs Restart lithium ER 450 mg b.i.d. -home dose is 300 mg q.a.m. and 750 mg q.h.s. Restart clozapine 12.5 mg b.i.d. and titrate to home dose; If tolerates will titrate as quickly as patient can as he has only been off for few days -home dose to 50 mg q.h.s. -and see q.weekly for now but likely can quickly go back to either q.2 weeks or Q monthly Continue Invega Sustenna 234 mg q.4 weeks; Not sure when next due Continue Cogentin 2 mg q.h.s. new Continue trazodone 50 mg q.h.s. p.r.n. Continue Cyanocobalamin, loratadine, folic acid, phenyl fibrate Continue atorvastatin Continue omeprazole continue metformin 500 mg b.i.d. Labs from [facility] reviewed CBC, BUN/creatinine, calcium, lytes, LFTs all grossly within normal limits with some mild-mod normocytic anemia Valproic acid a 0.0 [place] level 0.3 COVID negative I spent minutes with the patient and/or on the patient floor today, greater than?50% of which was spent counseling/coordinating care. Reason for contiued inpatient stay Substantial Risk for: harm to others and rapid decompensation
[2021-05-05] MEDS: HaloperidoL 5 MG TABLET 10 MG PO ×2 (14:33→20:48)
[2021-05-05] MEDS: Divalproex Sodium ER 500 MG TAB.ER.24H 1000 MG PO (14:37)
[2021-05-05] MEDS: metFORMIN HCl 500 MG TABLET PO (17:15)
[2021-05-05 18:00] VITALS: BP 131/65; PULSE 89; TEMP 36.4
[2021-05-05] MEDS: traZODone HCL 50 MG TABLET PO ×2 (20:47→21:56)
[2021-05-05] MEDS: Benztropine Mesylate 1 MG TABLET 2 MG PO (20:48)
[2021-05-06] MEDS: Omeprazole 20 MG CAPSULE.DR PO (06:39)
[2021-05-06 08:59] VITALS: BP 118/61; PULSE 93; RESP 17; TEMP 36.4; O2SAT 96
[2021-05-06] MEDS: Multivitamin TABLET 1 TAB PO (09:02)
[2021-05-06] MEDS: Loratadine 10 MG TABLET PO (09:02)
[2021-05-06] MEDS: Atorvastatin Calcium 10 MG TABLET PO (09:02)
[2021-05-06] MEDS: Folic Acid 1 MG TABLET 4 MG PO (09:02)
[2021-05-06] MEDS: Fenofibrate 160 MG TABLET PO (09:02)
[2021-05-06] MEDS: metFORMIN HCl 500 MG TABLET PO ×2 (09:02→17:11)
[2021-05-06] MEDS: Lithium Carbonate ER 450 MG TABLET.ER 900 MG PO (09:03)
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
[2021-05-06] MEDS: Divalproex Sodium ER 500 MG TAB.ER.24H 1000 MG PO (12:42)
[2021-05-06 18:00] VITALS: BP 158/75; PULSE 83; RESP 18; TEMP 36.6; O2SAT 97
[2021-05-06] MEDS: Benztropine Mesylate 1 MG TABLET 2 MG PO (20:57)
[2021-05-06] MEDS: HaloperidoL 5 MG TABLET 10 MG PO (20:57)
[2021-05-07 06:00] VITALS: BP 124/76; PULSE 96; RESP 18; TEMP 36.5; O2SAT 97
[2021-05-07] MEDS: Omeprazole 20 MG CAPSULE.DR PO (06:04)
[2021-05-07] MEDS: Fenofibrate 160 MG TABLET PO (07:53)
[2021-05-07] MEDS: metFORMIN HCl 500 MG TABLET PO ×2 (07:53→18:05)
[2021-05-07] MEDS: Loratadine 10 MG TABLET PO (07:53)
[2021-05-07] MEDS: Lithium Carbonate ER 450 MG TABLET.ER 900 MG PO (07:53)
[2021-05-07] MEDS: Atorvastatin Calcium 10 MG TABLET PO (07:54)
[2021-05-07] MEDS: Multivitamin TABLET 1 TAB PO (07:54)
[2021-05-07] MEDS: Folic Acid 1 MG TABLET 4 MG PO (07:54)
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
[2021-05-07] MEDS: Divalproex Sodium ER 500 MG TAB.ER.24H 1000 MG PO (12:48)
[2021-05-07] MEDS: HaloperidoL 5 MG TABLET 10 MG PO (20:46)
[2021-05-07] MEDS: Benztropine Mesylate 1 MG TABLET 2 MG PO (20:46)
[2021-05-08 06:00] VITALS: BP 122/63; PULSE 76; TEMP 36.3; O2SAT 97
[2021-05-08] MEDS: Omeprazole 20 MG CAPSULE.DR PO (06:51)
[2021-05-08] MEDS: Atorvastatin Calcium 10 MG TABLET PO (08:22)
[2021-05-08] MEDS: Lithium Carbonate ER 450 MG TABLET.ER 900 MG PO (08:22)
[2021-05-08] MEDS: Loratadine 10 MG TABLET PO (08:22)
[2021-05-08] MEDS: metFORMIN HCl 500 MG TABLET PO ×2 (08:22→17:15)
[2021-05-08] MEDS: Multivitamin TABLET 1 TAB PO (08:22)
[2021-05-08] MEDS: Folic Acid 1 MG TABLET 4 MG PO (08:22)
[2021-05-08] MEDS: Fenofibrate 160 MG TABLET PO (08:22)
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
[2021-05-08] MEDS: Divalproex Sodium ER 500 MG TAB.ER.24H 1500 MG PO (13:05)
[2021-05-08] MEDS: Acetaminophen 325 MG TABLET 650 MG PO (13:46)
[2021-05-08 16:40] VITALS: BP 112/66; PULSE 92; TEMP 36.8
[2021-05-08] MEDS: Benztropine Mesylate 1 MG TABLET 2 MG PO (21:52)
[2021-05-08] MEDS: cloZAPine 25 MG TABLET PO (21:52)
[2021-05-09] MEDS: Omeprazole 20 MG CAPSULE.DR PO (06:34)
[2021-05-09] MEDS: Fenofibrate 160 MG TABLET PO (09:43)
[2021-05-09] MEDS: Atorvastatin Calcium 10 MG TABLET PO (09:43)
[2021-05-09] MEDS: Folic Acid 1 MG TABLET 4 MG PO (09:43)
[2021-05-09] MEDS: metFORMIN HCl 500 MG TABLET PO ×2 (09:43→16:17)
[2021-05-09] MEDS: Multivitamin TABLET 1 TAB PO (09:43)
[2021-05-09] MEDS: Loratadine 10 MG TABLET PO (09:43)
[2021-05-09 10:06] VITALS: BP 123/66; PULSE 109; TEMP 36.4; O2SAT 97
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
[2021-05-09 18:00] VITALS: BP 109/72; PULSE 64; RESP 16; TEMP 36.4; O2SAT 98
[2021-05-09] MEDS: cloZAPine 25 MG TABLET PO (20:52)
[2021-05-09] MEDS: Benztropine Mesylate 1 MG TABLET PO (20:53)
[2021-05-09] MEDS: Benztropine Mesylate 1 MG TABLET 2 MG PO (20:53)
[2021-05-09] MEDS: Lithium Carbonate ER 450 MG TABLET.ER 900 MG PO (20:53)
[2021-05-09] MEDS: Divalproex Sodium ER 500 MG TAB.ER.24H 1500 MG PO (20:54)
[2021-05-09] MEDS: traZODone HCL 50 MG TABLET PO (22:06)
[2021-05-10 06:00] VITALS: BP 110/57; PULSE 101; TEMP 36.5; O2SAT 97
[2021-05-10 09:01] LABS: WBCANC 7.8 X10*3/uL
[2021-05-10] MEDS: Loratadine 10 MG TABLET PO (09:01)
[2021-05-10] MEDS: Fenofibrate 160 MG TABLET PO (09:01)
[2021-05-10] MEDS: Multivitamin TABLET 1 TAB PO (09:01)
[2021-05-10] MEDS: Atorvastatin Calcium 10 MG TABLET PO (09:01)
[2021-05-10] MEDS: metFORMIN HCl 500 MG TABLET PO ×2 (09:04→17:26)
[2021-05-10] MEDS: Folic Acid 1 MG TABLET 4 MG PO (09:04)
[2021-05-10 18:00] VITALS: BP 127/70; PULSE 98; TEMP 36.6; O2SAT 97
[2021-05-10] MEDS: Acetaminophen 325 MG TABLET 650 MG PO (19:34)
[2021-05-10] MEDS: cloZAPine ODT 25 MG TAB.RAPDIS PO (20:25)
[2021-05-10] MEDS: Benztropine Mesylate 1 MG TABLET 2 MG PO (20:26)
[2021-05-10] MEDS: Divalproex Sodium ER 500 MG TAB.ER.24H 1500 MG PO (20:27)
[2021-05-10] MEDS: Lithium Carbonate ER 450 MG TABLET.ER 900 MG PO (20:27)
[2021-05-10] MEDS: traZODone HCL 50 MG TABLET PO (20:32)
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
[2021-05-11 06:00] VITALS: BP 128/74; PULSE 95; RESP 18; TEMP 36.5; O2SAT 97
[2021-05-11] MEDS: Omeprazole 20 MG CAPSULE.DR PO (06:22)
[2021-05-11 07:00] VITALS: BMI 40.1
[2021-05-11] MEDS: Fenofibrate 160 MG TABLET PO (08:47)
[2021-05-11] MEDS: Folic Acid 1 MG TABLET 4 MG PO (08:47)
[2021-05-11] MEDS: Loratadine 10 MG TABLET PO (08:47)
[2021-05-11] MEDS: Atorvastatin Calcium 10 MG TABLET PO (08:47)
[2021-05-11] MEDS: Multivitamin TABLET 1 TAB PO (08:48)
[2021-05-11] MEDS: metFORMIN HCl 500 MG TABLET PO ×2 (08:48→16:42)
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
[2021-05-11 18:00] VITALS: BP 148/56; PULSE 85; RESP 20; TEMP 36.2; O2SAT 98
[2021-05-11] MEDS: cloZAPine ODT 25 MG TAB.RAPDIS 50 MG PO (20:45)
[2021-05-11] MEDS: Benztropine Mesylate 1 MG TABLET 2 MG PO (20:47)
[2021-05-11] MEDS: Divalproex Sodium ER 500 MG TAB.ER.24H 1500 MG PO (20:47)
[2021-05-11] MEDS: Lithium Carbonate ER 450 MG TABLET.ER 900 MG PO (20:48)
[2021-05-11] MEDS: traZODone HCL 50 MG TABLET PO (20:49)
[2021-05-12 06:00] VITALS: BP 129/76; PULSE 99; RESP 18; TEMP 36.4; O2SAT 97
[2021-05-12] MEDS: metFORMIN HCl 500 MG TABLET PO ×2 (06:29→16:58)
[2021-05-12] MEDS: Omeprazole 20 MG CAPSULE.DR PO (06:29)
[2021-05-12] MEDS: Multivitamin TABLET 1 TAB PO (09:32)
[2021-05-12] MEDS: Atorvastatin Calcium 10 MG TABLET PO (09:32)
[2021-05-12] MEDS: Loratadine 10 MG TABLET PO (09:32)
[2021-05-12] MEDS: Folic Acid 1 MG TABLET 4 MG PO (09:32)
[2021-05-12] MEDS: Fenofibrate 160 MG TABLET PO (09:32)
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
[2021-05-12 18:00] VITALS: BP 125/56; PULSE 114
[2021-05-12] MEDS: Acetaminophen 325 MG TABLET 650 MG PO (19:53)
[2021-05-12] MEDS: Divalproex Sodium ER 500 MG TAB.ER.24H 1500 MG PO (19:54)
[2021-05-12] MEDS: Benztropine Mesylate 1 MG TABLET 2 MG PO (19:54)
[2021-05-12] MEDS: Lithium Carbonate ER 450 MG TABLET.ER 900 MG PO (19:54)
[2021-05-12] MEDS: cloZAPine ODT 25 MG TAB.RAPDIS 50 MG PO (19:54)
[2021-05-12] MEDS: traZODone HCL 50 MG TABLET PO (19:59)
[2021-05-13 06:00] VITALS: BP 116/68; PULSE 79; RESP 16; TEMP 36.6; O2SAT 96
[2021-05-13] MEDS: Omeprazole 20 MG CAPSULE.DR PO (06:28)
[2021-05-13 08:44] LABS: Anion Gap 11 (12-20); Blood Urea Nitrogen 12 mg/dL (9-16); Calcium 9.7 mg/dL (8.4-10.2); Carbon Dioxide 26 mmol/L (22-29); Chloride 110 mmol/L (96-108); Creatinine Clr Calc Pharmacy 176.4; Estimated Glomerular Filt Rate > 60; Glucose Random 101 mg/dL (60-115); Potassium 4.8 mmol/L (3.3-5.1); Sodium 142 mmol/L (135-145)
[2021-05-13] MEDS: metFORMIN HCl 500 MG TABLET PO ×2 (08:46→16:58)
[2021-05-13] MEDS: Atorvastatin Calcium 10 MG TABLET PO (08:46)
[2021-05-13] MEDS: Fenofibrate 160 MG TABLET PO (08:46)
[2021-05-13] MEDS: Loratadine 10 MG TABLET PO (08:46)
[2021-05-13] MEDS: Multivitamin TABLET 1 TAB PO (08:46)
[2021-05-13] MEDS: Folic Acid 1 MG TABLET 4 MG PO (08:46)
[2021-05-13] MEDS: Acetaminophen 325 MG TABLET 650 MG PO (15:50)
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
[2021-05-13 19:35] VITALS: BP 143/69; PULSE 97; TEMP 35.9; O2SAT 98
[2021-05-13] MEDS: Divalproex Sodium ER 500 MG TAB.ER.24H 1500 MG PO (21:26)
[2021-05-13] MEDS: traZODone HCL 50 MG TABLET PO (21:26)
[2021-05-13] MEDS: Benztropine Mesylate 1 MG TABLET 2 MG PO (21:26)
[2021-05-13] MEDS: Lithium Carbonate ER 450 MG TABLET.ER 900 MG PO (21:26)
[2021-05-13] MEDS: cloZAPine ODT 25 MG TAB.RAPDIS 50 MG PO (21:26)
[2021-05-14] MEDS: Fenofibrate 160 MG TABLET PO (09:13)
[2021-05-14] MEDS: Omeprazole 20 MG CAPSULE.DR PO (09:13)
[2021-05-14] MEDS: Loratadine 10 MG TABLET PO (09:13)
[2021-05-14] MEDS: Multivitamin TABLET 1 TAB PO (09:13)
[2021-05-14] MEDS: Atorvastatin Calcium 10 MG TABLET PO (09:13)
[2021-05-14] MEDS: metFORMIN HCl 500 MG TABLET PO ×2 (09:13→16:37)
[2021-05-14] MEDS: Folic Acid 1 MG TABLET 4 MG PO (09:13)
[2021-05-14 18:00] VITALS: BP 142/80; PULSE 94; TEMP 36.7
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
[2021-05-14] MEDS: Lithium Carbonate ER 450 MG TABLET.ER 900 MG PO (20:14)
[2021-05-14] MEDS: traZODone HCL 50 MG TABLET PO (20:14)
[2021-05-14] MEDS: Benztropine Mesylate 1 MG TABLET 2 MG PO (20:14)
[2021-05-14] MEDS: Divalproex Sodium ER 500 MG TAB.ER.24H 1500 MG PO (20:14)
[2021-05-14] MEDS: cloZAPine ODT 25 MG TAB.RAPDIS 50 MG PO (20:14)
[2021-05-14] MEDS: Acetaminophen 325 MG TABLET 650 MG PO (20:18)
[2021-05-15 06:00] VITALS: BP 140/78; PULSE 90; TEMP 36.6; O2SAT 98
[2021-05-15] MEDS: Omeprazole 20 MG CAPSULE.DR PO (06:43)
[2021-05-15] MEDS: Folic Acid 1 MG TABLET 4 MG PO (09:49)
[2021-05-15] MEDS: Fenofibrate 160 MG TABLET PO (09:49)
[2021-05-15] MEDS: Loratadine 10 MG TABLET PO (09:50)
[2021-05-15] MEDS: Atorvastatin Calcium 10 MG TABLET PO (09:50)
[2021-05-15] MEDS: Multivitamin TABLET 1 TAB PO (09:50)
[2021-05-15] MEDS: metFORMIN HCl 500 MG TABLET PO ×2 (09:50→17:24)
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
[2021-05-15] MEDS: cloZAPine ODT 25 MG TAB.RAPDIS 75 MG PO (20:05)
[2021-05-15] MEDS: Benztropine Mesylate 1 MG TABLET 2 MG PO (20:06)
[2021-05-15] MEDS: LORazepam 1 MG TABLET 2 MG PO (20:06)
[2021-05-15] MEDS: HaloperidoL 5 MG TABLET 10 MG PO (20:06)
[2021-05-15] MEDS: Divalproex Sodium ER 500 MG TAB.ER.24H 1500 MG PO (20:06)
[2021-05-15] MEDS: Lithium Carbonate ER 450 MG TABLET.ER 900 MG PO (20:06)
[2021-05-15] MEDS: diphenhydrAMINE HCL 25 MG TABLET 50 MG PO (20:07)
[2021-05-16 06:00] VITALS: BP 136/77; PULSE 87; RESP 16; TEMP 36.9; O2SAT 98
[2021-05-16] MEDS: Omeprazole 20 MG CAPSULE.DR PO (06:13)
[2021-05-16 08:37] LABS: Neut%MD 51.1 %; Neutrophils Absolute Auto 4.4 x10*3/uL (2.0-8.3); WBCANC 8.5 X10*3/uL
[2021-05-16] MEDS: metFORMIN HCl 500 MG TABLET PO ×2 (08:43→17:10)
[2021-05-16] MEDS: Multivitamin TABLET 1 TAB PO (08:43)
[2021-05-16] MEDS: Fenofibrate 160 MG TABLET PO (08:43)
[2021-05-16] MEDS: Folic Acid 1 MG TABLET 4 MG PO (08:43)
[2021-05-16] MEDS: Atorvastatin Calcium 10 MG TABLET PO (08:43)
[2021-05-16] MEDS: Loratadine 10 MG TABLET PO (08:43)
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
[2021-05-16] MEDS: Divalproex Sodium ER 500 MG TAB.ER.24H 1500 MG PO (19:43)
[2021-05-16] MEDS: traZODone HCL 50 MG TABLET PO (19:44)
[2021-05-16] MEDS: Lithium Carbonate ER 450 MG TABLET.ER 900 MG PO (19:45)
[2021-05-16] MEDS: Benztropine Mesylate 1 MG TABLET 2 MG PO (19:45)
[2021-05-16] MEDS: cloZAPine ODT 25 MG TAB.RAPDIS 100 MG PO (19:46)
[2021-05-17] MEDS: Omeprazole 20 MG CAPSULE.DR PO (06:23)
[2021-05-17 08:38] LABS: MANUAL DIFF FLAG NO
[2021-05-17 08:44] LABS: Basophils Percent Auto 0.5 % (0-2); Eosinophils Absolute Auto 0.2 X10*3/uL (0.0-0.4); Eosinophils Percent Auto 3.4 % (0-4); Hematocrit 37.4 % (42.0-52.0); Hemoglobin 11.7 g/dl (14.0-18.0); Imm Gran Abs Auto 0.03 X10*3/uL (0.00-0.03); Imm Gran Pct Auto 0.5 % (0.0-0.4); Lymphocytes Absolute Auto 2.5 X10*3/uL (1.2-4.9); Lymphocytes Percent Auto 38.3 % (20-40); Mean Corpuscular HGB Conc 31.3 g/dl (31.0-36.0); Mean Corpuscular Hemoglobin 26.6 pg (27.0-33.0); Mean Platelet Volume 10.1 fL (9.4-12.4); Monocytes Absolute Auto 0.4 X10*3/uL (0.1-1.2); Monocytes Percent Auto 6.4 % (2-11); Neutrophils Absolute Auto 3.3 x10*3/uL (2.0-8.3); Neutrophils Percent Auto 50.9 % (45-73); Platelet Count 232 X10*3/uL (160-400); Red Cell Distribution Width 14.9 % (11.0-16.0); White Blood Count 6.6 X10*3/uL (4.8-10.8)
[2021-05-17] MEDS: Fenofibrate 160 MG TABLET PO (08:55)
[2021-05-17] MEDS: metFORMIN HCl 500 MG TABLET PO ×2 (08:55→17:15)
[2021-05-17] MEDS: Folic Acid 1 MG TABLET 4 MG PO (08:55)
[2021-05-17] MEDS: Loratadine 10 MG TABLET PO (08:56)
[2021-05-17] MEDS: Multivitamin TABLET 1 TAB PO (08:56)
[2021-05-17 08:57] LABS: Alanine Aminotransferase 42 U/L (0-40); Albumin Level 4.2 g/dL (3.5-5.0); Alkaline Phosphatase 42 U/L (39-117); Aspartate Amino Transferase 28 U/L (5-37); Bilirubin Direct < 0.2 mg/dL (0.0-0.5); Bilirubin Total 0.2 mg/dL (0.0-1.0); Blood Urea Nitrogen 13 mg/dL (9-16); Creatinine Clr Calc Pharmacy 169.6; Estimated Glomerular Filt Rate > 60; Total Protein 6.7 g/dL (6.5-8.0)
[2021-05-17 08:58] LABS: Ammonia 58 umol/L (13-55)
[2021-05-17 09:36] LABS: Valproate 41.8 mcg/mL (50.0-100.0)
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
[2021-05-17 19:45] VITALS: BP 123/73; PULSE 127; TEMP 36.2; O2SAT 97
[2021-05-17] MEDS: Benztropine Mesylate 1 MG TABLET 2 MG PO (19:54)
[2021-05-17] MEDS: traZODone HCL 50 MG TABLET PO (19:55)
[2021-05-17] MEDS: cloZAPine ODT 25 MG TAB.RAPDIS 100 MG PO (19:55)
[2021-05-17] MEDS: Divalproex Sodium ER 500 MG TAB.ER.24H 1500 MG PO (19:55)
[2021-05-17] MEDS: Lithium Carbonate ER 450 MG TABLET.ER 900 MG PO (19:56)
[2021-05-18] MEDS: Omeprazole 20 MG CAPSULE.DR PO (06:26)
[2021-05-18 08:29] VITALS: BP 128/73; PULSE 95; TEMP 36.9
[2021-05-18] MEDS: Loratadine 10 MG TABLET PO (08:37)
[2021-05-18] MEDS: Fenofibrate 160 MG TABLET PO (08:37)
[2021-05-18] MEDS: Atorvastatin Calcium 10 MG TABLET PO (08:37)
[2021-05-18] MEDS: Multivitamin TABLET 1 TAB PO (08:38)
[2021-05-18] MEDS: Folic Acid 1 MG TABLET 4 MG PO (08:38)
[2021-05-18] MEDS: metFORMIN HCl 500 MG TABLET PO ×2 (08:38→16:49)
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
[2021-05-18 19:07] VITALS: BP 133/73; PULSE 92; RESP 16; TEMP 36.5; O2SAT 99
[2021-05-18] MEDS: cloZAPine ODT 25 MG TAB.RAPDIS 100 MG PO (20:10)
[2021-05-18] MEDS: Lithium Carbonate ER 450 MG TABLET.ER 900 MG PO (20:11)
[2021-05-18] MEDS: Divalproex Sodium ER 500 MG TAB.ER.24H 1500 MG PO (20:11)
[2021-05-18] MEDS: Benztropine Mesylate 1 MG TABLET 2 MG PO (20:12)
[2021-05-18] MEDS: traZODone HCL 50 MG TABLET PO (20:12)
[2021-05-19 08:52] VITALS: BP 148/61; PULSE 108; TEMP 36.4
[2021-05-19] MEDS: metFORMIN HCl 500 MG TABLET PO ×2 (09:17→19:25)
[2021-05-19] MEDS: Loratadine 10 MG TABLET PO (09:17)
[2021-05-19] MEDS: Multivitamin TABLET 1 TAB PO (09:17)
[2021-05-19] MEDS: Atorvastatin Calcium 10 MG TABLET PO (09:17)
[2021-05-19] MEDS: Omeprazole 20 MG CAPSULE.DR PO (09:18)
[2021-05-19] MEDS: Fenofibrate 160 MG TABLET PO (09:18)
[2021-05-19] MEDS: Folic Acid 1 MG TABLET 4 MG PO (09:18)
[2021-05-19] MEDS: Acetaminophen 325 MG TABLET 650 MG PO (10:13)
[2021-05-19 18:00] VITALS: BP 135/72; PULSE 99; RESP 18; TEMP 36.6; O2SAT 99
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
[2021-05-19] MEDS: cloZAPine ODT 25 MG TAB.RAPDIS 125 MG PO (22:00)
[2021-05-19] MEDS: Benztropine Mesylate 1 MG TABLET 2 MG PO (22:08)
[2021-05-19] MEDS: traZODone HCL 50 MG TABLET PO (22:09)
[2021-05-19] MEDS: Lithium Carbonate ER 450 MG TABLET.ER 900 MG PO (22:10)
[2021-05-19] MEDS: Divalproex Sodium ER 500 MG TAB.ER.24H 1500 MG PO (22:10)
[2021-05-20] MEDS: Folic Acid 1 MG TABLET 4 MG PO (08:18)
[2021-05-20] MEDS: Multivitamin TABLET 1 TAB PO (08:18)
[2021-05-20] MEDS: metFORMIN HCl 500 MG TABLET PO ×2 (08:18→17:20)
[2021-05-20] MEDS: Atorvastatin Calcium 10 MG TABLET PO (08:18)
[2021-05-20] MEDS: Fenofibrate 160 MG TABLET PO (08:18)
[2021-05-20] MEDS: Loratadine 10 MG TABLET PO (08:18)
[2021-05-20] MEDS: Paliperidone Palmitate 234 MG/1.5 ML SYRINGE IM (11:28)
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
[2021-05-20] MEDS: Acetaminophen 325 MG TABLET 650 MG PO (16:22)
[2021-05-20 17:31] VITALS: BMI 40.4
[2021-05-20] MEDS: Divalproex Sodium ER 500 MG TAB.ER.24H 1500 MG PO (22:20)
[2021-05-20] MEDS: Benztropine Mesylate 1 MG TABLET 2 MG PO (22:20)
[2021-05-20] MEDS: Lithium Carbonate ER 450 MG TABLET.ER 900 MG PO (22:20)
[2021-05-20] MEDS: cloZAPine ODT 25 MG TAB.RAPDIS 125 MG PO (22:21)
[2021-05-21] MEDS: Omeprazole 20 MG CAPSULE.DR PO (08:51)
[2021-05-21] MEDS: Atorvastatin Calcium 10 MG TABLET PO (08:51)
[2021-05-21] MEDS: Loratadine 10 MG TABLET PO (08:51)
[2021-05-21] MEDS: metFORMIN HCl 500 MG TABLET PO ×2 (08:51→17:39)
[2021-05-21] MEDS: Multivitamin TABLET 1 TAB PO (08:51)
[2021-05-21] MEDS: Folic Acid 1 MG TABLET 4 MG PO (08:51)
[2021-05-21] MEDS: Fenofibrate 160 MG TABLET PO (08:51)
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
[2021-05-21] MEDS: Acetaminophen 325 MG TABLET 650 MG PO (16:36)
[2021-05-21] MEDS: traZODone HCL 50 MG TABLET PO (21:38)
[2021-05-21] MEDS: Divalproex Sodium ER 500 MG TAB.ER.24H 1500 MG PO (21:38)
[2021-05-21] MEDS: Benztropine Mesylate 1 MG TABLET 2 MG PO (21:38)
[2021-05-21] MEDS: Lithium Carbonate ER 450 MG TABLET.ER 900 MG PO (21:38)
[2021-05-21] MEDS: cloZAPine ODT 25 MG TAB.RAPDIS 150 MG PO (21:39)
[2021-05-22] MEDS: Omeprazole 20 MG CAPSULE.DR PO (06:45)
[2021-05-22] MEDS: metFORMIN HCl 500 MG TABLET PO ×2 (08:26→17:14)
[2021-05-22] MEDS: Atorvastatin Calcium 10 MG TABLET PO (08:26)
[2021-05-22] MEDS: Folic Acid 1 MG TABLET 4 MG PO (08:26)
[2021-05-22] MEDS: Fenofibrate 160 MG TABLET PO (08:26)
[2021-05-22] MEDS: Multivitamin TABLET 1 TAB PO (08:26)
[2021-05-22] MEDS: Loratadine 10 MG TABLET PO (08:26)
[2021-05-22] MEDS: Acetaminophen 325 MG TABLET 650 MG PO ×2 (08:52→18:51)
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
[2021-05-22] MEDS: traZODone HCL 50 MG TABLET PO (21:39)
[2021-05-22] MEDS: cloZAPine ODT 25 MG TAB.RAPDIS 150 MG PO (21:39)
[2021-05-22] MEDS: Lithium Carbonate ER 450 MG TABLET.ER 900 MG PO (21:40)
[2021-05-22] MEDS: Benztropine Mesylate 1 MG TABLET 2 MG PO (21:40)
[2021-05-22] MEDS: Divalproex Sodium ER 500 MG TAB.ER.24H 1500 MG PO (21:41)
[2021-05-23] MEDS: Omeprazole 20 MG CAPSULE.DR PO (06:37)
[2021-05-23 08:32] LABS: Clozapine (Clozaril) 161 mcg/L; Norclozapine 36 mcg/L (25-400)
[2021-05-23] MEDS: Folic Acid 1 MG TABLET 4 MG PO (08:58)
[2021-05-23] MEDS: Loratadine 10 MG TABLET PO (08:58)
[2021-05-23] MEDS: Fenofibrate 160 MG TABLET PO (08:58)
[2021-05-23] MEDS: metFORMIN HCl 500 MG TABLET PO ×2 (08:58→16:15)
[2021-05-23] MEDS: Multivitamin TABLET 1 TAB PO (08:58)
[2021-05-23] MEDS: Atorvastatin Calcium 10 MG TABLET PO (08:58)
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
[2021-05-23 19:09] VITALS: BP 133/86; PULSE 104; TEMP 36.8; O2SAT 95
[2021-05-23] MEDS: Lithium Carbonate ER 450 MG TABLET.ER 900 MG PO (20:37)
[2021-05-23] MEDS: Divalproex Sodium ER 500 MG TAB.ER.24H 1500 MG PO (20:37)
[2021-05-23] MEDS: Benztropine Mesylate 1 MG TABLET 2 MG PO (20:38)
[2021-05-23] MEDS: cloZAPine ODT 25 MG TAB.RAPDIS 175 MG PO (20:39)
[2021-05-23] MEDS: traZODone HCL 50 MG TABLET PO (20:42)
[2021-05-24] MEDS: Omeprazole 20 MG CAPSULE.DR PO (06:24)
[2021-05-24 08:51] LABS: Neut%MD 58.6 %; Neutrophils Absolute Auto 3.9 x10*3/uL (2.0-8.3); WBCANC 6.7 X10*3/uL
[2021-05-24] MEDS: Fenofibrate 160 MG TABLET PO (08:55)
[2021-05-24] MEDS: Multivitamin TABLET 1 TAB PO (08:55)
[2021-05-24] MEDS: Folic Acid 1 MG TABLET 4 MG PO (08:55)
[2021-05-24] MEDS: Atorvastatin Calcium 10 MG TABLET PO (08:55)
[2021-05-24] MEDS: metFORMIN HCl 500 MG TABLET PO ×2 (08:55→17:12)
[2021-05-24] MEDS: Loratadine 10 MG TABLET PO (08:55)
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
[2021-05-24 16:50] VITALS: BP 132/83; PULSE 93; TEMP 36.6
[2021-05-24] MEDS: cloZAPine ODT 25 MG TAB.RAPDIS 200 MG PO (21:51)
[2021-05-24] MEDS: traZODone HCL 50 MG TABLET PO (21:51)
[2021-05-24] MEDS: Divalproex Sodium ER 500 MG TAB.ER.24H 1500 MG PO (21:52)
[2021-05-24] MEDS: Lithium Carbonate ER 450 MG TABLET.ER 900 MG PO (21:52)
[2021-05-24] MEDS: Benztropine Mesylate 1 MG TABLET 2 MG PO (21:52)
[2021-05-25] MEDS: Omeprazole 20 MG CAPSULE.DR PO (06:23)
[2021-05-25] MEDS: Fenofibrate 160 MG TABLET PO (08:39)
[2021-05-25] MEDS: Multivitamin TABLET 1 TAB PO (08:39)
[2021-05-25] MEDS: Loratadine 10 MG TABLET PO (08:39)
[2021-05-25] MEDS: Atorvastatin Calcium 10 MG TABLET PO (08:39)
[2021-05-25] MEDS: Folic Acid 1 MG TABLET 4 MG PO (08:39)
[2021-05-25] MEDS: metFORMIN HCl 500 MG TABLET PO ×2 (08:39→19:41)
[2021-05-25] MEDS: Cyanocobalamin (Vitamin B-12) 1,000 MCG/ML VIAL 1000 MCG IM (12:39)
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
[2021-05-25 20:30] VITALS: BP 134/90; PULSE 104; RESP 18; TEMP 36.5; O2SAT 96
[2021-05-25] MEDS: Lithium Carbonate ER 450 MG TABLET.ER 900 MG PO (20:30)
[2021-05-25] MEDS: Divalproex Sodium ER 500 MG TAB.ER.24H 1500 MG PO (20:30)
[2021-05-25] MEDS: Benztropine Mesylate 1 MG TABLET 2 MG PO (20:30)
[2021-05-25] MEDS: traZODone HCL 50 MG TABLET PO (20:31)
[2021-05-25] MEDS: cloZAPine ODT 25 MG TAB.RAPDIS 200 MG PO (20:32)
[2021-05-26] MEDS: metFORMIN HCl 500 MG TABLET PO ×2 (08:37→16:56)
[2021-05-26] MEDS: Fenofibrate 160 MG TABLET PO (08:37)
[2021-05-26] MEDS: Omeprazole 20 MG CAPSULE.DR PO (08:37)
[2021-05-26] MEDS: Folic Acid 1 MG TABLET 4 MG PO (08:37)
[2021-05-26] MEDS: Loratadine 10 MG TABLET PO (08:37)
[2021-05-26] MEDS: Atorvastatin Calcium 10 MG TABLET PO (08:37)
[2021-05-26] MEDS: Multivitamin TABLET 1 TAB PO (08:37)
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
[2021-05-26 18:00] VITALS: BP 137/76; PULSE 96; RESP 16; TEMP 36.4; O2SAT 97
[2021-05-26] MEDS: Divalproex Sodium ER 500 MG TAB.ER.24H 1500 MG PO (20:24)
[2021-05-26] MEDS: Lithium Carbonate ER 450 MG TABLET.ER 900 MG PO (20:24)
[2021-05-26] MEDS: Benztropine Mesylate 1 MG TABLET 2 MG PO (20:25)
[2021-05-26] MEDS: cloZAPine ODT 25 MG TAB.RAPDIS 225 MG PO (20:25)
[2021-05-26] MEDS: traZODone HCL 50 MG TABLET PO (21:31)
[2021-05-27] MEDS: Omeprazole 20 MG CAPSULE.DR PO (06:24)
[2021-05-27] MEDS: Loratadine 10 MG TABLET PO (09:12)
[2021-05-27] MEDS: Folic Acid 1 MG TABLET 4 MG PO (09:12)
[2021-05-27] MEDS: metFORMIN HCl 500 MG TABLET PO ×2 (09:13→19:23)
[2021-05-27] MEDS: Fenofibrate 160 MG TABLET PO (09:13)
[2021-05-27] MEDS: Multivitamin TABLET 1 TAB PO (09:13)
[2021-05-27] MEDS: Atorvastatin Calcium 10 MG TABLET PO (09:14)
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
[2021-05-27 18:00] VITALS: BP 132/98; PULSE 99; RESP 18; TEMP 36.8; O2SAT 97
[2021-05-27] MEDS: cloZAPine ODT 25 MG TAB.RAPDIS 225 MG PO (20:20)
[2021-05-27] MEDS: Divalproex Sodium ER 500 MG TAB.ER.24H 1500 MG PO (20:25)
[2021-05-27] MEDS: Benztropine Mesylate 1 MG TABLET 2 MG PO (20:36)
[2021-05-27] MEDS: Lithium Carbonate ER 450 MG TABLET.ER 900 MG PO (20:39)
[2021-05-27] MEDS: traZODone HCL 50 MG TABLET PO (20:42)
[2021-05-28] MEDS: Multivitamin TABLET 1 TAB PO (08:56)
[2021-05-28] MEDS: Loratadine 10 MG TABLET PO (08:56)
[2021-05-28] MEDS: Omeprazole 20 MG CAPSULE.DR PO (08:56)
[2021-05-28] MEDS: Folic Acid 1 MG TABLET 4 MG PO (08:56)
[2021-05-28] MEDS: metFORMIN HCl 500 MG TABLET PO ×2 (08:56→17:05)
[2021-05-28] MEDS: Atorvastatin Calcium 10 MG TABLET PO (08:56)
[2021-05-28] MEDS: Fenofibrate 160 MG TABLET PO (08:56)
[2021-05-28 10:44] VITALS: BP 124/75; PULSE 120; TEMP 36.9; O2SAT 96
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
[2021-05-28 18:00] VITALS: BP 138/74; PULSE 110; RESP 20; TEMP 36.4; O2SAT 97
[2021-05-28] MEDS: Benztropine Mesylate 1 MG TABLET 2 MG PO (22:25)
[2021-05-28] MEDS: cloZAPine ODT 25 MG TAB.RAPDIS 225 MG PO (22:28)
[2021-05-28] MEDS: Divalproex Sodium ER 500 MG TAB.ER.24H 1500 MG PO (22:28)
[2021-05-28] MEDS: Lithium Carbonate ER 450 MG TABLET.ER 900 MG PO (22:29)
[2021-05-28] MEDS: traZODone HCL 50 MG TABLET PO (22:30)
[2021-05-29] MEDS: Omeprazole 20 MG CAPSULE.DR PO (06:24)
[2021-05-29] MEDS: Atorvastatin Calcium 10 MG TABLET PO (08:43)
[2021-05-29] MEDS: Folic Acid 1 MG TABLET 4 MG PO (08:43)
[2021-05-29] MEDS: Fenofibrate 160 MG TABLET PO (08:43)
[2021-05-29] MEDS: Multivitamin TABLET 1 TAB PO (08:43)
[2021-05-29] MEDS: metFORMIN HCl 500 MG TABLET PO (08:43)
[2021-05-29] MEDS: Loratadine 10 MG TABLET PO (08:43)
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
[2021-05-29 09:27] LABS: Creatinine Clr Calc Pharmacy 174.5; Estimated Glomerular Filt Rate > 60
== END 2021-05-29 13:05 | DRG 750 ==
PROVIDERS: Psychiatry & Neurology Psychiatry; Student in an Organized Health Care Education/Training Program; Admitting Provider Psychiatry & Neurology Psychiatry; Visit Provider Psychiatry & Neurology Psychiatry
DX: F20.0 Paranoid schizophrenia (principal); Z91.14 Patient's other noncompliance with medication regimen; F60.2 Antisocial personality disorder; Z79.84 Long term (current) use of oral hypoglycemic drugs; Z87.891 Personal history of nicotine dependence; Z79.899 Other long term (current) drug therapy
CPT/HCPCS: 36415; 80048; 80053; 80061; 80076; 80159; 80164; 80178; 82140; 82565; 84520; 85025; 85048; J2426; Q0163

== ENCOUNTER 2023-08-29 17:44 | Inpatient (IN) | payer OTHER, SELFPAY ==
[2023-08-29 18:33] VITALS: BMI 31.9
[2023-08-29 18:51] VITALS: BP 117/81; PULSE 105; RESP 18; TEMP 36.4; O2SAT 95
--- NOTE | 2023-08-29 19:04 | PC.ADMIT ---
Neftali arrived to [facility] on 08/29/23 at 1801 on a CV from [facility]. Skin check preformed by STORM and Raymond Dai RN without issue. Neftali placed on 15 minute checks for safety. Admission passed onto next RN.
[2023-08-29] MEDS: Divalproex Sodium ER 500 MG TAB.ER.24H PO (22:06)
[2023-08-29] MEDS: OLANZapine 10 MG TABLET 20 MG PO (22:06)
[2023-08-29] MEDS: traZODone HCL 50 MG TABLET PO (22:06)
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
[2023-08-30 08:00] VITALS: BP 117/57; PULSE 103; TEMP 37; O2SAT 97
[2023-08-30 08:51] LABS: Estimated Average Glucose 111 mg/dL; Hemoglobin A1c % 5.5 % (<6.0)
[2023-08-30 08:58] LABS: Alanine Aminotransferase 24 U/L (0-40); Albumin Level 4.3 g/dL (3.5-5.0); Alkaline Phosphatase 52 U/L (39-117); Anion Gap 14 (12-20); Aspartate Amino Transferase 19 U/L (5-37); Bilirubin Total 0.2 mg/dL (0.0-1.0); Blood Urea Nitrogen 9 mg/dL (9-16); Calcium 9.3 mg/dL (8.4-10.2); Carbon Dioxide 24 mmol/L (22-29); Chloride 108 mmol/L (96-108); Cholesterol 118 mg/dL (<200); Creatinine Clr Calc Pharmacy 229.4; Estimated Glomerular Filt Rate > 60; Glucose Fasting 104 mg/dL (60-99); HDL Cholesterol 38 mg/dL (>40); LDL Cholesterol Calculated 44 mg/dL (<100); Potassium 4.4 mmol/L (3.3-5.1); Sodium 142 mmol/L (135-145); Total Protein 6.9 g/dL (6.5-8.0); Triglycerides 183 mg/dL (<150)
[2023-08-30] MEDS: Omeprazole 20 MG CAPSULE.DR PO (09:32)
[2023-08-30] MEDS: Atorvastatin Calcium 10 MG TABLET PO (09:33)
--- NOTE | 2023-08-30 11:41 | P.CONHOSP_ITS ---
History of Present Illness Data of Consult Service Date: 08/30/23 Primary Care Provider: Unknown Physician HPI Reason for consult: Admission H&P Pt is a 48-year-old male with a PMH significant for?HLD, GERD, schizoaffective disorder, and bipolar disorder with history of prolonged inpatient psychiatric hospitalizations who is admitted to psychiatry unit after leaving [facility]MA from a step-down unit and currently on a [employer] order for medications. Medical consult for admission H&P. ?Patient denies any acute medical complaints at this time. No fever, chills, nausea, vomiting, abdominal pain. No chest pain/pressure, palpitations. Denies shortness of breath or difficulty breathing. No headache or acute vision changes. Labs reviewed, grossly unremarkable. Vital signs stable. Patient likewise had no acute medical issues at presentation to [facility] ED on 08/27/2023. Review of Systems 2 Review of Systems: Patient has no acute medical complaints at this time [facility] Medical History Antisocial personality disorder Schizophrenia, paranoid type Social History Household Members: Unknown / Unable to assess Household Members Other:: recently at respite Housing: Homeless Do you presently have visiting nurse or other home services: Yes Patient Tobacco Use Status: Former Tobacco user Tobacco use type: Cigarette e-Cigarette/Vaping Use: Never Used Second Hand Smoke Exposure: Yes Use of substances other than those prescribed or required for medical reasons: No Do you feel safe in your current relationship?: No Current Relationship Spiritual Healthcare Practices: unknown Evangelical Healthcare Practices: unknown Cultural Healthcare Practices: unknown Advance Directives: No Advance Directives Information Provided: No Recently lost weight without trying: No Eating poorly because of decreased appetite: No Nutrition Risks: No Nutritional Risk Poor oral hygiene: Yes service: No Sexual orientation: Did not discuss Meds Allergies Allergy/AdvReac Type Severity Reaction Status Date / Time haloperidol [From Haldol] Allergy Unknown Verified 08/29/23 18:19 fluoxetine [From Prozac] AdvReac Agitated Verified 05/02/21 23:37 Active Medications: Current Medications Acetaminophen (Acetaminophen 325 Mg Tablet) 650 mg PO Q6H PRN PRN Reason: Headache/Pain Mild Scale (1-3) Al Hydroxide/Mg Hydroxide (Magnesium Hydrox/Alum Hydrox 30 Ml Oral.Susp) 30 ml PO Q6H PRN PRN Reason: Heartburn/Nausea Atorvastatin Calcium (Atorvastatin Calcium 10 Mg Tablet) 10 mg PO DAILY [facility] Last Admin: 08/30/23 09:33 Dose: 10 mg Cyclobenzaprine HCl (Cyclobenzaprine Hcl 10 Mg Tablet) 10 mg PO BID PRN PRN Reason: Spasms Divalproex Sodium (Divalproex Sodium Er 500 Mg Tab.Er.24h) 500 mg PO BEDTIME [facility] Last Admin: 08/29/23 22:06 Dose: 500 mg Hydroxyzine HCl (Hydroxyzine Hcl 25 Mg Tablet) 25 mg PO Q6H PRN PRN Reason: Anxiety Magnesium Hydroxide (Milk Of Magnesia 30 Ml Oral.Susp) 30 ml PO DAILY PRN PRN Reason: Constipation Melatonin (Melatonin 3 Mg Tablet) 6 mg PO BEDTIME PRN PRN Reason: Sleep Nicotine (Nicotine 21 Mg Patch.Td24) 21 mg TRANSDERMA DAILY PRN PRN Reason: smoking cessation Nicotine Polacrilex (Nicotine Polacrilex 2 Mg Gum) 4 mg BUCCAL Q2H PRN PRN Reason: Nicotine Cravings Olanzapine (Olanzapine 5 Mg Tablet) 5 mg PO TID PRN PRN Reason: agitation Olanzapine (Olanzapine 10 Mg Tablet) 20 mg PO BEDTIME [facility] Last Admin: 08/29/23 22:06 Dose: 20 mg Omeprazole (Omeprazole 20 Mg Capsule.Dr) 20 mg PO DAILY@0630 [facility] Last Admin: 08/30/23 09:32 Dose: 20 mg Trazodone HCl (Trazodone Hcl 50 Mg Tablet) 50 mg PO BEDTIME MRX1 PRN PRN Reason: Insomnia Last Admin: 08/29/23 22:06 Dose: 50 mg Home Medications ?Medication ?Instructions ?Recorded ?Confirmed ?Last Taken ?Type acetaminophen 325 mg tablet 650 mg PO Q6H PRN Headache/Pain 08/29/23 08/29/23 Unknown History (Tylenol) Mild Scale (1-3) atorvastatin 10 mg tablet (Lipitor) 10 mg PO DAILY 08/29/23 08/29/23 Unknown History cyclobenzaprine 5 mg tablet 10 mg PO BID PRN Spasms 08/29/23 08/29/23 Unknown History divalproex 500 mg tablet,extended 1,500 mg PO BEDTIME 08/29/23 08/29/23 Unknown History release 24 hr (Depakote ER) melatonin 3 mg tablet 6 mg PO BEDTIME PRN Sleep 08/29/23 08/29/23 Unknown History olanzapine 20 mg tablet (Zyprexa) 20 mg PO BEDTIME 08/29/23 08/29/23 Unknown History pantoprazole 40 mg tablet,delayed 40 mg PO DAILY 08/29/23 08/29/23 Unknown History release Physical Exam 2 Vital Signs and Narrative: Vital Signs: Last Vital Signs Temp 97.5 F 08/29/23 18:51 Pulse 105 H 08/29/23 18:51 Resp 18 08/29/23 18:51 BP 117/81 08/29/23 18:51 Pulse Ox 95 08/29/23 18:51 O2 Del Method Room Air 08/29/23 18:51 BMI result Body Mass Index 31.9 General: AOx3, no acute distress Resp: CTA bilaterally CVS: S1, S2, RRR GI: +BS, NT, no distention Skin: Warm, dry Neuro: Cranial nerves II-XII grossly intact bilaterally. Motor grossly intact bilaterally Extremities: No edema Psych: Appropriate affect Results Labs 08/30/23 08:30 Labs: Laboratory Results - last 24 hr 08/30/23 08:30 Anion Gap 14 Estim Creat Clear Calc 229.4 Estimated GFR > 60 Fasting Glucose 104 H Estimat Average Glucose 111 Hemoglobin A1c % 5.5 Calcium 9.3 Total Bilirubin 0.2 AST 19 ALT 24 Alkaline Phosphatase 52 Total Protein 6.9 Albumin 4.3 Triglycerides 183 H Cholesterol 118 LDL Cholesterol, Calc 44 HDL Cholesterol 38 L Assessment and Plan (1) Medical clearance for psychiatric admission: Status: Acute Plan Pt is a 48-year-old male with a PMH significant for?HLD, GERD, schizoaffective disorder, and bipolar disorder with history of prolonged inpatient psychiatric hospitalizations who is admitted to M3 psychiatry unit after leaving AMA from a step-down unit and currently on a [employer] order for medications. Medical consult for admission H&P. ? Mood disorder Plan as per Psychiatry HLD Continue statin GERD Continue PPI Patient otherwise has no chronic medical conditions or acute medical complaints at this time. Will sign off. Thank you for allowing us to participate in the care of this patient. Please re-consult if any acute issue or need arises.
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
[2023-08-30 20:00] VITALS: BP 170/92; PULSE 100; RESP 16; TEMP 36.2; O2SAT 95
[2023-08-30] MEDS: OLANZapine 10 MG TABLET 20 MG PO (22:07)
[2023-08-30] MEDS: Divalproex Sodium ER 500 MG TAB.ER.24H 1500 MG PO (22:08)
[2023-08-31] MEDS: QUEtiapine Fumarate 200 MG TABLET PO ×2 (00:26→22:11)
--- NOTE | 2023-08-31 09:30 | P.PNPSI_ITS ---
Subjective Subjective Date of Service: 08/31/23 Reason For Visit: Schizoaffective disorder Subjective Notes: Conditional Voluntary Interim History: Reviewed with Dr. Weiss. Keeping to self. guarded. brief during assessment. Pt reports feeling fine ; he reports sleeping well last night. denies SI/HI/VH/AH. Medication Compliance: Yes Side effects from medications: No Attending Groups: No Review of Systems Constitutional: Reports as per HPI Eyes: Reports as per HPI Reports as per HPI Cardiovascular: Reports as per HPI Respiratory: Reports as per HPI Gastrointestinal: Reports as per HPI Genitourinary: Reports as per HPI Musculoskeletal: Reports as per HPI Skin/Breast: Reports as per HPI Reports as per HPI Psychiatric: Reports as per HPI Endocrine: Reports as per HPI Hematologic/Lymphatic: Reports as per HPI Allergic/Immunologic: Reports as per HPI Mental Status Exam Mental Status Exam Narrative: Pt is alert and oriented; behavior is calm, guarded, brief; dressed in casual attire; mood is described as okay ; eye contact appropriate; Speech is normal rate, volume and not pressured; thought process is organized; denies SI/HI/VH/AH. Diagnostics Vital Signs (24Hr): Vital Signs - 24 hr 08/30/23 20:00 Temperature 97.2 F Pulse Rate 100 Respiratory Rate 16 Blood Pressure 170/92 H Pulse Oximetry 95 Oxygen Delivery Method Room Air BMI result Body Mass Index 31.9 Labs 08/30/23 08:30 Labs: Laboratory Results - last 48 hr 08/30/23 08:30 Sodium 142 Potassium 4.4 Chloride 108 Carbon Dioxide 24 Anion Gap 14 BUN 9 Creatinine 0.57 Estim Creat Clear Calc 229.4 Estimated GFR > 60 Fasting Glucose 104 H Estimat Average Glucose 111 Hemoglobin A1c % 5.5 Calcium 9.3 Total Bilirubin 0.2 AST 19 ALT 24 Alkaline Phosphatase 52 Total Protein 6.9 Albumin 4.3 Triglycerides 183 H Cholesterol 118 LDL Cholesterol, Calc 44 HDL Cholesterol 38 L Medications Medications Current Medications Acetaminophen (Acetaminophen 325 Mg Tablet) 650 mg PO Q6H PRN PRN Reason: Headache/Pain Mild Scale (1-3) Al Hydroxide/Mg Hydroxide (Magnesium Hydrox/Alum Hydrox 30 Ml Oral.Susp) 30 ml PO Q6H PRN PRN Reason: Heartburn/Nausea Atorvastatin Calcium (Atorvastatin Calcium 10 Mg Tablet) 10 mg PO DAILY [facility] Last Admin: 08/30/23 09:33 Dose: 10 mg Cyclobenzaprine HCl (Cyclobenzaprine Hcl 10 Mg Tablet) 10 mg PO BID PRN PRN Reason: Spasms Divalproex Sodium (Divalproex Sodium Er 500 Mg Tab.Er.24h) 1,500 mg PO BEDTIME COUNTS INCLUDE 234 BEDS AT THE [facility] Last Admin: 08/30/23 22:08 Dose: 1,500 mg Hydroxyzine HCl (Hydroxyzine Hcl 25 Mg Tablet) 25 mg PO Q6H PRN PRN Reason: Anxiety Magnesium Hydroxide (Milk Of Magnesia 30 Ml Oral.Susp) 30 ml PO DAILY PRN PRN Reason: Constipation Melatonin (Melatonin 3 Mg Tablet) 6 mg PO BEDTIME PRN PRN Reason: Sleep Nicotine (Nicotine 21 Mg Patch.Td24) 21 mg TRANSDERMA DAILY PRN PRN Reason: smoking cessation Nicotine Polacrilex (Nicotine Polacrilex 2 Mg Gum) 4 mg BUCCAL Q2H PRN PRN Reason: Nicotine Cravings Olanzapine (Olanzapine 5 Mg Tablet) 5 mg PO TID PRN PRN Reason: agitation Olanzapine (Olanzapine 10 Mg Tablet) 20 mg PO BEDTIME COUNTS INCLUDE 234 BEDS AT THE [facility] Last Admin: 08/30/23 22:07 Dose: 20 mg Omeprazole (Omeprazole 20 Mg Capsule.Dr) 20 mg PO DAILY@0630 COUNTS INCLUDE 234 BEDS AT THE [facility] Last Admin: 08/30/23 09:32 Dose: 20 mg Quetiapine Fumarate (Quetiapine Fumarate 200 Mg Tablet) 200 mg PO BEDTIME PRN PRN Reason: insomnia Last Admin: 08/31/23 00:26 Dose: 200 mg Trazodone HCl (Trazodone Hcl 50 Mg Tablet) 50 mg PO BEDTIME MRX1 PRN PRN Reason: Insomnia Last Admin: 08/29/23 22:06 Dose: 50 mg Allergies Allergies Allergy/AdvReac Type Severity Reaction Status Date / Time haloperidol [From Haldol] Allergy Unknown Verified 08/29/23 18:19 fluoxetine [From Prozac] AdvReac Agitated Verified 05/02/21 23:37 Assessment & Plan Assessment & Plan (1) Schizoaffective disorder, bipolar type: Status: Acute Code(s): F25.0 - Schizoaffective disorder, bipolar type (2) Antisocial personality disorder: Status: Acute Code(s): F60.2 - Antisocial personality disorder Plan return to usual outpt medications regimen of zyprexa 20 mg and depakote 1500 mg QHS. some [facility] paperwork has clozaril 300 mg QHS listed rather than zyprexa 20 mg QHS, med rec includes zyprexa but not clozaril. pt's Hx with clozaril should be further elaborated. pt likely to need substantially higher dose of depakote than 1500 mg, however, in order to achieve a solidly therapeutic level. pt received invega sustenna 234 mg on 08/25. pt requests seroquel 200 mg QHS PRN insomnia, which is ordered. 08/30: Keeping to self, guarded. continue current tx plan. Patient educated on: diagnosis and medication risk/benefits Reason for continued inpatient stay Substantial Risk for: med/psych decompensation Time Spent With Patient Time: Total time managing care of this patient today _20___ minutes.
[2023-08-31] MEDS: Atorvastatin Calcium 10 MG TABLET PO (10:07)
[2023-08-31] MEDS: Omeprazole 20 MG CAPSULE.DR PO (10:07)
[2023-08-31 20:00] VITALS: BP 130/75; PULSE 92; RESP 16; TEMP 36.6; O2SAT 98
[2023-08-31] MEDS: Divalproex Sodium ER 500 MG TAB.ER.24H 1500 MG PO (21:33)
[2023-08-31] MEDS: OLANZapine 10 MG TABLET 20 MG PO (21:33)
[2023-09-01] MEDS: Omeprazole 20 MG CAPSULE.DR PO (06:22)
--- NOTE | 2023-09-01 09:02 | HO.PSYCHPN ---
Subjective Subjective Date of Service: 09/01/23 Reason For Visit: Schizoaffective disorder Subjective Notes: Conditional Voluntary Interim History: Reviewed with Dr. Weiss. guarded. brief during assessment. Pt reports feeling good ; pt stated, I don't need anything. My meds are okay . Nursing reported pt slept 8 hours last evening. Medication Compliance: Yes Side effects from medications: No Attending Groups: No Review of Systems Constitutional: Reports as per HPI Eyes: Reports as per HPI Reports as per HPI Cardiovascular: Reports as per HPI Respiratory: Reports as per HPI Gastrointestinal: Reports as per HPI Genitourinary: Reports as per HPI Musculoskeletal: Reports as per HPI Skin/Breast: Reports as per HPI Reports as per HPI Psychiatric: Reports as per HPI Endocrine: Reports as per HPI Hematologic/Lymphatic: Reports as per HPI Allergic/Immunologic: Reports as per HPI Mental Status Exam Mental Status Exam Narrative: Pt is alert and oriented; behavior is calm, guarded, brief; dressed in casual attire; mood is described as good ; eye contact appropriate; Speech is normal rate, volume and not pressured; thought process is organized; denies SI/HI/VH/AH. Diagnostics Vital Signs (24Hr): Vital Signs - 24 hr 08/31/23 20:00 Temperature 97.8 F Pulse Rate 92 Respiratory Rate 16 Blood Pressure 130/75 Pulse Oximetry 98 Oxygen Delivery Method Room Air BMI result Body Mass Index 31.9 Labs 08/30/23 08:30 Medications Medications Current Medications Acetaminophen (Acetaminophen 325 Mg Tablet) 650 mg PO Q6H PRN PRN Reason: Headache/Pain Mild Scale (1-3) Al Hydroxide/Mg Hydroxide (Magnesium Hydrox/Alum Hydrox 30 Ml Oral.Susp) 30 ml PO Q6H PRN PRN Reason: Heartburn/Nausea Atorvastatin Calcium (Atorvastatin Calcium 10 Mg Tablet) 10 mg PO DAILY [facility] Last Admin: 08/31/23 10:07 Dose: 10 mg Cyclobenzaprine HCl (Cyclobenzaprine Hcl 10 Mg Tablet) 10 mg PO BID PRN PRN Reason: Spasms Divalproex Sodium (Divalproex Sodium Er 500 Mg Tab.Er.24h) 1,500 mg PO BEDTIME [facility] Last Admin: 08/31/23 21:33 Dose: 1,500 mg Hydroxyzine HCl (Hydroxyzine Hcl 25 Mg Tablet) 25 mg PO Q6H PRN PRN Reason: Anxiety Magnesium Hydroxide (Milk Of Magnesia 30 Ml Oral.Susp) 30 ml PO DAILY PRN PRN Reason: Constipation Melatonin (Melatonin 3 Mg Tablet) 6 mg PO BEDTIME PRN PRN Reason: Sleep Nicotine (Nicotine 21 Mg Patch.Td24) 21 mg TRANSDERMA DAILY PRN PRN Reason: smoking cessation Nicotine Polacrilex (Nicotine Polacrilex 2 Mg Gum) 4 mg BUCCAL Q2H PRN PRN Reason: Nicotine Cravings Olanzapine (Olanzapine 5 Mg Tablet) 5 mg PO TID PRN PRN Reason: agitation Olanzapine (Olanzapine 10 Mg Tablet) 20 mg PO BEDTIME [facility] Last Admin: 08/31/23 21:33 Dose: 20 mg Omeprazole (Omeprazole 20 Mg Capsule.Dr) 20 mg PO DAILY@0630 [facility] Last Admin: 09/01/23 06:22 Dose: 20 mg Quetiapine Fumarate (Quetiapine Fumarate 200 Mg Tablet) 200 mg PO BEDTIME PRN PRN Reason: insomnia Last Admin: 08/31/23 22:11 Dose: 200 mg Trazodone HCl (Trazodone Hcl 50 Mg Tablet) 50 mg PO BEDTIME MRX1 PRN PRN Reason: Insomnia Last Admin: 08/29/23 22:06 Dose: 50 mg Allergies Allergies Allergy/AdvReac Type Severity Reaction Status Date / Time haloperidol [From Haldol] Allergy Unknown Verified 08/29/23 18:19 fluoxetine [From Prozac] AdvReac Agitated Verified 05/02/21 23:37 Assessment & Plan Assessment & Plan (1) Schizoaffective disorder, bipolar type: Status: Acute Code(s): F25.0 - Schizoaffective disorder, bipolar type (2) Antisocial personality disorder: Status: Acute Code(s): F60.2 - Antisocial personality disorder Plan return to usual outpt medications regimen of zyprexa 20 mg and depakote 1500 mg QHS. some [facility] paperwork has clozaril 300 mg QHS listed rather than zyprexa 20 mg QHS, med rec includes zyprexa but not clozaril. pt's Hx with clozaril should be further elaborated. pt likely to need substantially higher dose of depakote than 1500 mg, however, in order to achieve a solidly therapeutic level. pt received invega sustenna 234 mg on 08/25. pt requests seroquel 200 mg QHS PRN insomnia, which is ordered. 08/30: Keeping to self, guarded. continue current tx plan. 08/31: guarded. brief during assessment. Pt reports feeling good ; pt stated, I don't need anything. My meds are okay . Nursing reported pt slept 8 hours last evening. continue current tx plan. Patient educated on: medication risk/benefits Reason for continued inpatient stay Substantial Risk for: med/psych decompensation Time Spent With Patient Time: Total time managing care of this patient today _20___ minutes.
[2023-09-01] MEDS: Atorvastatin Calcium 10 MG TABLET PO (09:23)
[2023-09-01 19:46] VITALS: BP 161/98; PULSE 91; RESP 18; TEMP 36.3; O2SAT 99
[2023-09-01] MEDS: OLANZapine 10 MG TABLET 20 MG PO (21:08)
[2023-09-01] MEDS: QUEtiapine Fumarate 200 MG TABLET PO (21:08)
[2023-09-01] MEDS: Divalproex Sodium ER 500 MG TAB.ER.24H 1500 MG PO (21:09)
[2023-09-02] MEDS: Atorvastatin Calcium 10 MG TABLET PO (09:35)
--- NOTE | 2023-09-02 10:02 | P.PNPSI_ITS ---
Subjective Subjective Date of Service: 09/02/23 Reason For Visit: Schizoaffective disorder Subjective Notes: Conditional Voluntary Interim History: Reviewed with Dr. Weiss. Keeping to self. Pt reports feeling good ; pt stated, I don't need anything. I'm just waiting to see where [facility] will find me placement . Guarded. listening to music with unit headphones. medication compliant. Medication Compliance: Yes Side effects from medications: No Attending Groups: No Review of Systems Constitutional: Reports as per HPI Eyes: Reports as per HPI Reports as per HPI Cardiovascular: Reports as per HPI Respiratory: Reports as per HPI Gastrointestinal: Reports as per HPI Genitourinary: Reports as per HPI Musculoskeletal: Reports as per HPI Skin/Breast: Reports as per HPI Reports as per HPI Psychiatric: Reports as per HPI Endocrine: Reports as per HPI Hematologic/Lymphatic: Reports as per HPI Allergic/Immunologic: Reports as per HPI Mental Status Exam Mental Status Exam Narrative: Pt is alert and oriented; behavior is calm, guarded, brief; dressed in casual attire; mood is described as good ; eye contact appropriate; Speech is normal rate, volume and not pressured; thought process is organized; denies SI/HI/VH/AH. Diagnostics Vital Signs (24Hr): Vital Signs - 24 hr 09/01/23 19:46 Temperature 97.4 F Pulse Rate 91 Respiratory Rate 18 Blood Pressure 161/98 H Pulse Oximetry 99 Oxygen Delivery Method Room Air BMI result Body Mass Index 31.9 Labs 08/30/23 08:30 Medications Medications Current Medications Acetaminophen (Acetaminophen 325 Mg Tablet) 650 mg PO Q6H PRN PRN Reason: Headache/Pain Mild Scale (1-3) Al Hydroxide/Mg Hydroxide (Magnesium Hydrox/Alum Hydrox 30 Ml Oral.Susp) 30 ml PO Q6H PRN PRN Reason: Heartburn/Nausea Atorvastatin Calcium (Atorvastatin Calcium 10 Mg Tablet) 10 mg PO DAILY [facility] Last Admin: 09/02/23 09:35 Dose: 10 mg Cyclobenzaprine HCl (Cyclobenzaprine Hcl 10 Mg Tablet) 10 mg PO BID PRN PRN Reason: Spasms Divalproex Sodium (Divalproex Sodium Er 500 Mg Tab.Er.24h) 1,500 mg PO BEDTIME [facility] Last Admin: 09/01/23 21:09 Dose: 1,500 mg Hydroxyzine HCl (Hydroxyzine Hcl 25 Mg Tablet) 25 mg PO Q6H PRN PRN Reason: Anxiety Magnesium Hydroxide (Milk Of Magnesia 30 Ml Oral.Susp) 30 ml PO DAILY PRN PRN Reason: Constipation Melatonin (Melatonin 3 Mg Tablet) 6 mg PO BEDTIME PRN PRN Reason: Sleep Nicotine (Nicotine 21 Mg Patch.Td24) 21 mg TRANSDERMA DAILY PRN PRN Reason: smoking cessation Nicotine Polacrilex (Nicotine Polacrilex 2 Mg Gum) 4 mg BUCCAL Q2H PRN PRN Reason: Nicotine Cravings Olanzapine (Olanzapine 5 Mg Tablet) 5 mg PO TID PRN PRN Reason: agitation Olanzapine (Olanzapine 10 Mg Tablet) 20 mg PO BEDTIME [facility] Last Admin: 09/01/23 21:08 Dose: 20 mg Omeprazole (Omeprazole 20 Mg Capsule.Dr) 20 mg PO DAILY@0630 [facility] Last Admin: 09/02/23 06:49 Dose: Not Given Quetiapine Fumarate (Quetiapine Fumarate 200 Mg Tablet) 200 mg PO BEDTIME PRN PRN Reason: insomnia Last Admin: 09/01/23 21:08 Dose: 200 mg Trazodone HCl (Trazodone Hcl 50 Mg Tablet) 50 mg PO BEDTIME MRX1 PRN PRN Reason: Insomnia Last Admin: 08/29/23 22:06 Dose: 50 mg Allergies Allergies Allergy/AdvReac Type Severity Reaction Status Date / Time haloperidol [From Haldol] Allergy Unknown Verified 08/29/23 18:19 fluoxetine [From Prozac] AdvReac Agitated Verified 05/02/21 23:37 Assessment & Plan Assessment & Plan (1) Schizoaffective disorder, bipolar type: Status: Acute Code(s): F25.0 - Schizoaffective disorder, bipolar type (2) Antisocial personality disorder: Status: Acute Code(s): F60.2 - Antisocial personality disorder Plan return to usual outpt medications regimen of zyprexa 20 mg and depakote 1500 mg QHS. some [facility] paperwork has clozaril 300 mg QHS listed rather than zyprexa 20 mg QHS, med rec includes zyprexa but not clozaril. pt's Hx with clozaril should be further elaborated. pt likely to need substantially higher dose of depakote than 1500 mg, however, in order to achieve a solidly therapeutic level. pt received invega sustenna 234 mg on 08/25. pt requests seroquel 200 mg QHS PRN insomnia, which is ordered. 08/30: Keeping to self, guarded. continue current tx plan. 08/31: guarded. brief during assessment. Pt reports feeling good ; pt stated, I don't need anything. My meds are okay . Nursing reported pt slept 8 hours last evening. continue current tx plan. 09/01: Guarded, keeping to self. Pt reports he is waiting for placement. medication compliant. continue current tx plan. Patient educated on: medication risk/benefits Reason for continued inpatient stay Substantial Risk for: med/psych decompensation Time Spent With Patient Time: Total time managing care of this patient today _20___ minutes.
[2023-09-02 20:00] VITALS: RESP 16
[2023-09-02] MEDS: Divalproex Sodium ER 500 MG TAB.ER.24H 1500 MG PO (22:01)
[2023-09-02] MEDS: OLANZapine 10 MG TABLET 20 MG PO (22:01)
[2023-09-02] MEDS: QUEtiapine Fumarate 200 MG TABLET PO (22:01)
[2023-09-03] MEDS: Atorvastatin Calcium 10 MG TABLET PO (09:35)
[2023-09-03] MEDS: Omeprazole 20 MG CAPSULE.DR PO (09:36)
[2023-09-03] MEDS: Acetaminophen 325 MG TABLET 650 MG PO (09:37)
--- NOTE | 2023-09-03 13:32 | P.PNPSI_ITS ---
Subjective Subjective Date of Service: 09/03/23 Reason For Visit: Schizoaffective disorder Subjective Notes: Conditional Voluntary Interim History: Reviewed with Dr. Weiss. Pt reports feeling good ; pt stated, I'm not anxious or depressed. I don't feel like I need to be here. I want [facility] to put me in a motel . Guarded. listening to music with unit headphones. medication compliant. denies SI/HI/VH/AH. Medication Compliance: Yes Side effects from medications: No Attending Groups: No Review of Systems Constitutional: Reports as per HPI Eyes: Reports as per HPI Reports as per HPI Cardiovascular: Reports as per HPI Respiratory: Reports as per HPI Gastrointestinal: Reports as per HPI Genitourinary: Reports as per HPI Musculoskeletal: Reports as per HPI Skin/Breast: Reports as per HPI Reports as per HPI Psychiatric: Reports as per HPI Endocrine: Reports as per HPI Hematologic/Lymphatic: Reports as per HPI Allergic/Immunologic: Reports as per HPI Mental Status Exam Mental Status Exam Narrative: Pt is alert and oriented; behavior is calm, guarded; dressed in casual attire; mood is described as good ; eye contact appropriate; Speech is normal rate, volume and not pressured; thought process is organized; denies SI/HI/VH/AH. Diagnostics Vital Signs (24Hr): Vital Signs - 24 hr 09/02/23 20:00 Respiratory Rate 16 BMI result Body Mass Index 31.9 Labs 08/30/23 08:30 Medications Medications Current Medications Acetaminophen (Acetaminophen 325 Mg Tablet) 650 mg PO Q6H PRN PRN Reason: Headache/Pain Mild Scale (1-3) Last Admin: 09/03/23 09:37 Dose: 650 mg Al Hydroxide/Mg Hydroxide (Magnesium Hydrox/Alum Hydrox 30 Ml Oral.Susp) 30 ml PO Q6H PRN PRN Reason: Heartburn/Nausea Atorvastatin Calcium (Atorvastatin Calcium 10 Mg Tablet) 10 mg PO DAILY [facility] Last Admin: 09/03/23 09:35 Dose: 10 mg Cyclobenzaprine HCl (Cyclobenzaprine Hcl 10 Mg Tablet) 10 mg PO BID PRN PRN Reason: Spasms Divalproex Sodium (Divalproex Sodium Er 500 Mg Tab.Er.24h) 1,500 mg PO BEDTIME [facility] Last Admin: 09/02/23 22:01 Dose: 1,500 mg Hydroxyzine HCl (Hydroxyzine Hcl 25 Mg Tablet) 25 mg PO Q6H PRN PRN Reason: Anxiety Magnesium Hydroxide (Milk Of Magnesia 30 Ml Oral.Susp) 30 ml PO DAILY PRN PRN Reason: Constipation Melatonin (Melatonin 3 Mg Tablet) 6 mg PO BEDTIME PRN PRN Reason: Sleep Nicotine (Nicotine 21 Mg Patch.Td24) 21 mg TRANSDERMA DAILY PRN PRN Reason: smoking cessation Nicotine Polacrilex (Nicotine Polacrilex 2 Mg Gum) 4 mg BUCCAL Q2H PRN PRN Reason: Nicotine Cravings Olanzapine (Olanzapine 5 Mg Tablet) 5 mg PO TID PRN PRN Reason: agitation Olanzapine (Olanzapine 10 Mg Tablet) 20 mg PO BEDTIME [facility] Last Admin: 09/02/23 22:01 Dose: 20 mg Omeprazole (Omeprazole 20 Mg Capsule.Dr) 20 mg PO DAILY@0630 [facility] Last Admin: 09/03/23 09:36 Dose: 20 mg Quetiapine Fumarate (Quetiapine Fumarate 200 Mg Tablet) 200 mg PO BEDTIME PRN PRN Reason: insomnia Last Admin: 09/02/23 22:01 Dose: 200 mg Trazodone HCl (Trazodone Hcl 50 Mg Tablet) 50 mg PO BEDTIME MRX1 PRN PRN Reason: Insomnia Last Admin: 08/29/23 22:06 Dose: 50 mg Allergies Allergies Allergy/AdvReac Type Severity Reaction Status Date / Time haloperidol [From Haldol] Allergy Unknown Verified 08/29/23 18:19 fluoxetine [From Prozac] AdvReac Agitated Verified 05/02/21 23:37 Assessment & Plan Assessment & Plan (1) Schizoaffective disorder, bipolar type: Status: Acute Code(s): F25.0 - Schizoaffective disorder, bipolar type (2) Antisocial personality disorder: Status: Acute Code(s): F60.2 - Antisocial personality disorder Plan return to usual outpt medications regimen of zyprexa 20 mg and depakote 1500 mg QHS. some [facility] paperwork has clozaril 300 mg QHS listed rather than zyprexa 20 mg QHS, med rec includes zyprexa but not clozaril. pt's Hx with clozaril should be further elaborated. pt likely to need substantially higher dose of depakote than 1500 mg, however, in order to achieve a solidly therapeutic level. pt received invega sustenna 234 mg on 08/25. pt requests seroquel 200 mg QHS PRN insomnia, which is ordered. 08/30: Keeping to self, guarded. continue current tx plan. 08/31: guarded. brief during assessment. Pt reports feeling good ; pt stated, I don't need anything. My meds are okay . Nursing reported pt slept 8 hours last evening. continue current tx plan. 09/01: Guarded, keeping to self. Pt reports he is waiting for placement. medication compliant. continue current tx plan. 09/02: Pt reports feeling good ; pt stated, I'm not anxious or depressed. I don't feel like I need to be here. I want [facility] to put me in a motel . Guarded. listening to music with unit headphones. medication compliant. denies SI/HI/VH/AH. Patient educated on: diagnosis and medication risk/benefits Reason for continued inpatient stay Substantial Risk for: med/psych decompensation Time Spent With Patient Time: Total time managing care of this patient today __20__ minutes.
--- NOTE | 2023-09-03 15:47 | PC.NURSE ---
Pt signed a three day notice 09/03/23 at 1530.
[2023-09-03 16:45] LABS: Ammonia 43 umol/L (13-55)
[2023-09-03 16:50] LABS: Valproate 51.4 mcg/mL (50.0-100.0)
[2023-09-03 16:54] LABS: Alanine Aminotransferase 70 U/L (0-40); Albumin Level 4.5 g/dL (3.5-5.0); Alkaline Phosphatase 66 U/L (39-117); Aspartate Amino Transferase 44 U/L (5-37); Bilirubin Direct < 0.2 mg/dL (0.0-0.5); Bilirubin Total 0.2 mg/dL (0.0-1.0); Total Protein 7.2 g/dL (6.5-8.0)
[2023-09-03] MEDS: OLANZapine 10 MG TABLET 20 MG PO (19:53)
[2023-09-03] MEDS: Divalproex Sodium ER 500 MG TAB.ER.24H 1500 MG PO (19:53)
[2023-09-03] MEDS: QUEtiapine Fumarate 200 MG TABLET PO (19:54)
[2023-09-04] MEDS: Omeprazole 20 MG CAPSULE.DR PO (06:32)
--- NOTE | 2023-09-04 13:05 | HO.PSYCHPN ---
Subjective Subjective Date of Service: 09/04/23 Reason For Visit: Schizoaffective disorder Subjective Notes: Conditional Voluntary Interim History: Reviewed with Dr. Weiss. Pt reports feeling good ; pt stated, I'm feeling frustrated because I'm a grown man but I have a guardian who I have never met and they control my money . listening to music with unit headphones. medication compliant. Pt reports sleeping well. denies SI/HI/VH/AH. Medication Compliance: Yes Side effects from medications: No Attending Groups: No Review of Systems Constitutional: Reports as per HPI Eyes: Reports as per HPI Reports as per HPI Cardiovascular: Reports as per HPI Respiratory: Reports as per HPI Gastrointestinal: Reports as per HPI Genitourinary: Reports as per HPI Musculoskeletal: Reports as per HPI Skin/Breast: Reports as per HPI Reports as per HPI Psychiatric: Reports as per HPI Endocrine: Reports as per HPI Hematologic/Lymphatic: Reports as per HPI Allergic/Immunologic: Reports as per HPI Mental Status Exam Mental Status Exam Narrative: Pt is alert and oriented; behavior is calm, guarded; dressed in casual attire; mood is described as good , expressing frustration ; eye contact appropriate; Speech is normal rate, volume and not pressured; thought process is organized; denies SI/HI/VH/AH. Diagnostics Vital Signs (24Hr): BMI result Body Mass Index 31.9 Labs 08/30/23 08:30 Labs: Laboratory Results - last 48 hr 09/03/23 16:23 Total Bilirubin 0.2 Direct Bilirubin < 0.2 AST 44 H ALT 70 H Alkaline Phosphatase 66 Ammonia 43 Total Protein 7.2 Albumin 4.5 Valproic Acid 51.4 Medications Medications Current Medications Acetaminophen (Acetaminophen 325 Mg Tablet) 650 mg PO Q6H PRN PRN Reason: Headache/Pain Mild Scale (1-3) Last Admin: 09/03/23 09:37 Dose: 650 mg Al Hydroxide/Mg Hydroxide (Magnesium Hydrox/Alum Hydrox 30 Ml Oral.Susp) 30 ml PO Q6H PRN PRN Reason: Heartburn/Nausea Atorvastatin Calcium (Atorvastatin Calcium 10 Mg Tablet) 10 mg PO DAILY [facility] Last Admin: 09/04/23 08:11 Dose: Not Given Cyclobenzaprine HCl (Cyclobenzaprine Hcl 10 Mg Tablet) 10 mg PO BID PRN PRN Reason: Spasms Divalproex Sodium (Divalproex Sodium Er 500 Mg Tab.Er.24h) 1,500 mg PO BEDTIME [facility] Last Admin: 09/03/23 19:53 Dose: 1,500 mg Hydroxyzine HCl (Hydroxyzine Hcl 25 Mg Tablet) 25 mg PO Q6H PRN PRN Reason: Anxiety Magnesium Hydroxide (Milk Of Magnesia 30 Ml Oral.Susp) 30 ml PO DAILY PRN PRN Reason: Constipation Melatonin (Melatonin 3 Mg Tablet) 6 mg PO BEDTIME PRN PRN Reason: Sleep Nicotine (Nicotine 21 Mg Patch.Td24) 21 mg TRANSDERMA DAILY PRN PRN Reason: smoking cessation Nicotine Polacrilex (Nicotine Polacrilex 2 Mg Gum) 4 mg BUCCAL Q2H PRN PRN Reason: Nicotine Cravings Olanzapine (Olanzapine 5 Mg Tablet) 5 mg PO TID PRN PRN Reason: agitation Olanzapine (Olanzapine 10 Mg Tablet) 20 mg PO BEDTIME [facility] Last Admin: 09/03/23 19:53 Dose: 20 mg Omeprazole (Omeprazole 20 Mg Capsule.Dr) 20 mg PO DAILY@0630 [facility] Last Admin: 09/04/23 06:32 Dose: 20 mg Quetiapine Fumarate (Quetiapine Fumarate 200 Mg Tablet) 200 mg PO BEDTIME PRN PRN Reason: insomnia Last Admin: 09/03/23 19:54 Dose: 200 mg Trazodone HCl (Trazodone Hcl 50 Mg Tablet) 50 mg PO BEDTIME MRX1 PRN PRN Reason: Insomnia Last Admin: 08/29/23 22:06 Dose: 50 mg Allergies Allergies Allergy/AdvReac Type Severity Reaction Status Date / Time haloperidol [From Haldol] Allergy Unknown Verified 08/29/23 18:19 fluoxetine [From Prozac] AdvReac Agitated Verified 05/02/21 23:37 Assessment & Plan Assessment & Plan (1) Schizoaffective disorder, bipolar type: Status: Acute Code(s): F25.0 - Schizoaffective disorder, bipolar type (2) Antisocial personality disorder: Status: Acute Code(s): F60.2 - Antisocial personality disorder Plan return to usual outpt medications regimen of zyprexa 20 mg and depakote 1500 mg QHS. some [facility] paperwork has clozaril 300 mg QHS listed rather than zyprexa 20 mg QHS, med rec includes zyprexa but not clozaril. pt's Hx with clozaril should be further elaborated. pt likely to need substantially higher dose of depakote than 1500 mg, however, in order to achieve a solidly therapeutic level. pt received invega sustenna 234 mg on 08/25. pt requests seroquel 200 mg QHS PRN insomnia, which is ordered. 08/30: Keeping to self, guarded. continue current tx plan. 08/31: guarded. brief during assessment. Pt reports feeling good ; pt stated, I don't need anything. My meds are okay . Nursing reported pt slept 8 hours last evening. continue current tx plan. 09/01: Guarded, keeping to self. Pt reports he is waiting for placement. medication compliant. continue current tx plan. 09/02: Pt reports feeling good ; pt stated, I'm not anxious or depressed. I don't feel like I need to be here. I want [facility] to put me in a motel . Guarded. listening to music with unit headphones. medication compliant. denies SI/HI/VH/AH. 09/03: Pt reports feeling good ; pt stated, I'm feeling frustrated because I'm a grown man but I have a guardian who I have never met and they control my money . listening to music with unit headphones. medication compliant. Pt reports sleeping well. denies SI/HI/VH/AH. Elevated LFT, will redraw labs today. Patient educated on: diagnosis and medication risk/benefits Reason for continued inpatient stay Substantial Risk for: med/psych decompensation Time Spent With Patient Time: Total time managing care of this patient today _20___ minutes.
[2023-09-04 15:41] LABS: Alanine Aminotransferase 66 U/L (0-40); Albumin Level 4.3 g/dL (3.5-5.0); Alkaline Phosphatase 63 U/L (39-117); Ammonia 50 umol/L (13-55); Aspartate Amino Transferase 33 U/L (5-37); Bilirubin Direct < 0.2 mg/dL (0.0-0.5); Bilirubin Total 0.2 mg/dL (0.0-1.0)
[2023-09-04 16:22] LABS: Valproate 54.6 mcg/mL (50.0-100.0)
[2023-09-04] MEDS: Divalproex Sodium ER 500 MG TAB.ER.24H 1500 MG PO (21:18)
[2023-09-04] MEDS: OLANZapine 10 MG TABLET 20 MG PO (21:18)
[2023-09-05] MEDS: Omeprazole 20 MG CAPSULE.DR PO (06:31)
[2023-09-05] MEDS: Atorvastatin Calcium 10 MG TABLET PO (08:34)
--- NOTE | 2023-09-05 09:03 | HO.PSYCHPN ---
Subjective Subjective Date of Service: 09/05/23 Reason For Visit: Schizoaffective disorder Subjective Notes: Conditional Voluntary Interim History: Reviewed with Dr. Weiss. Pt reports feeling good ; pt stated, I spoke with my team and they told me they are going to get me a motel room . Tele-meeting today with PACT team and web content & social media manager, Veronica, present. PACT team would like pt's medications switched to morning to be able to have visiting nurse administer them; pt aware and in agreeable. Pt reports sleeping well. Medication Compliance: Yes Side effects from medications: No Attending Groups: No Review of Systems Constitutional: Reports as per HPI Eyes: Reports as per HPI Reports as per HPI Cardiovascular: Reports as per HPI Respiratory: Reports as per HPI Gastrointestinal: Reports as per HPI Genitourinary: Reports as per HPI Musculoskeletal: Reports as per HPI Skin/Breast: Reports as per HPI Reports as per HPI Psychiatric: Reports as per HPI Endocrine: Reports as per HPI Hematologic/Lymphatic: Reports as per HPI Allergic/Immunologic: Reports as per HPI Mental Status Exam Mental Status Exam Narrative: Pt is alert and oriented; behavior is calm, guarded; dressed in casual attire; mood is described as good , expressing frustration ; eye contact appropriate; Speech is normal rate, volume and not pressured; thought process is organized; denies SI/HI/VH/AH. Diagnostics Vital Signs (24Hr): BMI result Body Mass Index 31.9 Labs 08/30/23 08:30 Labs: Laboratory Results - last 48 hr 09/03/23 09/04/23 16:23 15:16 Total Bilirubin 0.2 0.2 Direct Bilirubin < 0.2 < 0.2 AST 44 H 33 ALT 70 H 66 H Alkaline Phosphatase 66 63 Ammonia 43 50 Total Protein 7.2 7.0 Albumin 4.5 4.3 Valproic Acid 51.4 54.6 Medications Medications Current Medications Acetaminophen (Acetaminophen 325 Mg Tablet) 650 mg PO Q6H PRN PRN Reason: Headache/Pain Mild Scale (1-3) Last Admin: 09/03/23 09:37 Dose: 650 mg Al Hydroxide/Mg Hydroxide (Magnesium Hydrox/Alum Hydrox 30 Ml Oral.Susp) 30 ml PO Q6H PRN PRN Reason: Heartburn/Nausea Atorvastatin Calcium (Atorvastatin Calcium 10 Mg Tablet) 10 mg PO DAILY [facility] Last Admin: 09/05/23 08:34 Dose: 10 mg Cyclobenzaprine HCl (Cyclobenzaprine Hcl 10 Mg Tablet) 10 mg PO BID PRN PRN Reason: Spasms Divalproex Sodium (Divalproex Sodium Er 500 Mg Tab.Er.24h) 1,500 mg PO BEDTIME [facility] Last Admin: 09/04/23 21:18 Dose: 1,500 mg Hydroxyzine HCl (Hydroxyzine Hcl 25 Mg Tablet) 25 mg PO Q6H PRN PRN Reason: Anxiety Magnesium Hydroxide (Milk Of Magnesia 30 Ml Oral.Susp) 30 ml PO DAILY PRN PRN Reason: Constipation Melatonin (Melatonin 3 Mg Tablet) 6 mg PO BEDTIME PRN PRN Reason: Sleep Nicotine (Nicotine 21 Mg Patch.Td24) 21 mg TRANSDERMA DAILY PRN PRN Reason: smoking cessation Nicotine Polacrilex (Nicotine Polacrilex 2 Mg Gum) 4 mg BUCCAL Q2H PRN PRN Reason: Nicotine Cravings Olanzapine (Olanzapine 5 Mg Tablet) 5 mg PO TID PRN PRN Reason: agitation Olanzapine (Olanzapine 10 Mg Tablet) 20 mg PO BEDTIME [facility] Last Admin: 09/04/23 21:18 Dose: 20 mg Omeprazole (Omeprazole 20 Mg Capsule.Dr) 20 mg PO DAILY@0630 [facility] Last Admin: 09/05/23 06:31 Dose: 20 mg Quetiapine Fumarate (Quetiapine Fumarate 200 Mg Tablet) 200 mg PO BEDTIME PRN PRN Reason: insomnia Last Admin: 09/03/23 19:54 Dose: 200 mg Trazodone HCl (Trazodone Hcl 50 Mg Tablet) 50 mg PO BEDTIME MRX1 PRN PRN Reason: Insomnia Last Admin: 08/29/23 22:06 Dose: 50 mg Allergies Allergies Allergy/AdvReac Type Severity Reaction Status Date / Time haloperidol [From Haldol] Allergy Unknown Verified 08/29/23 18:19 fluoxetine [From Prozac] AdvReac Agitated Verified 05/02/21 23:37 Assessment & Plan Assessment & Plan (1) Schizoaffective disorder, bipolar type: Status: Acute Code(s): F25.0 - Schizoaffective disorder, bipolar type (2) Antisocial personality disorder: Status: Acute Code(s): F60.2 - Antisocial personality disorder Plan return to usual outpt medications regimen of zyprexa 20 mg and depakote 1500 mg QHS. some [facility] paperwork has clozaril 300 mg QHS listed rather than zyprexa 20 mg QHS, med rec includes zyprexa but not clozaril. pt's Hx with clozaril should be further elaborated. pt likely to need substantially higher dose of depakote than 1500 mg, however, in order to achieve a solidly therapeutic level. pt received invega sustenna 234 mg on 08/25. pt requests seroquel 200 mg QHS PRN insomnia, which is ordered. 08/30: Keeping to self, guarded. continue current tx plan. 08/31: guarded. brief during assessment. Pt reports feeling good ; pt stated, I don't need anything. My meds are okay . Nursing reported pt slept 8 hours last evening. continue current tx plan. 09/01: Guarded, keeping to self. Pt reports he is waiting for placement. medication compliant. continue current tx plan. 09/02: Pt reports feeling good ; pt stated, I'm not anxious or depressed. I don't feel like I need to be here. I want [facility] to put me in a motel . Guarded. listening to music with unit headphones. medication compliant. denies SI/HI/VH/AH. 09/03: Pt reports feeling good ; pt stated, I'm feeling frustrated because I'm a grown man but I have a guardian who I have never met and they control my money . listening to music with unit headphones. medication compliant. Pt reports sleeping well. denies SI/HI/VH/AH. Elevated LFT, will redraw labs today. 09/04: Pt reports feeling good ; pt stated, I spoke with my team and they told me they are going to get me a motel room . Tele-meeting today with PACT team and web content & social media manager, Veronica, present. PACT team would like pt's medications switched to morning to be able to have visiting nurse administer them; pt aware and in agreeable. Pt reports sleeping well. Valproic acid level 54.6 AST 33 ALT 66 Ammonia level 50 Patient educated on: diagnosis and medication risk/benefits Reason for continued inpatient stay Substantial Risk for: med/psych decompensation Time Spent With Patient Time: Total time managing care of this patient today _20___ minutes.
[2023-09-05] MEDS: OLANZapine 10 MG TABLET 20 MG PO (16:04)
[2023-09-05] MEDS: Divalproex Sodium ER 500 MG TAB.ER.24H 1500 MG PO (16:04)
[2023-09-05] MEDS: QUEtiapine Fumarate 200 MG TABLET PO (23:34)
[2023-09-06] MEDS: Omeprazole 20 MG CAPSULE.DR PO (08:28)
[2023-09-06] MEDS: OLANZapine 10 MG TABLET 20 MG PO (08:28)
[2023-09-06] MEDS: Atorvastatin Calcium 10 MG TABLET PO (08:28)
[2023-09-06] MEDS: Divalproex Sodium ER 500 MG TAB.ER.24H 1500 MG PO (08:28)
--- NOTE | 2023-09-06 14:09 | HO.PSYCHPN ---
Subjective Subjective Date of Service: 09/06/23 Reason For Visit: Schizoaffective disorder Interim History: feeling well, planning to discharge saturday. no complaints or requests. per staff, no dep/anx. + meds. flat, withdrawn, guarded. paranoid. meds changed to morning, does not appear sedated. discharge saturday at 1130. Mental Status Exam Mental Status Exam Narrative: Pt is alert and oriented; behavior is calm, guarded; dressed in casual attire; mood is described as good; eye contact appropriate; Speech is normal rate, volume and not pressured; thought process is organized; denies SI/HI/VH/AH. Diagnostics Vital Signs (24Hr): BMI result Body Mass Index 31.9 Labs 08/30/23 08:30 Labs: Laboratory Results - last 48 hr 09/04/23 15:16 Total Bilirubin 0.2 Direct Bilirubin < 0.2 AST 33 ALT 66 H Alkaline Phosphatase 63 Ammonia 50 Total Protein 7.0 Albumin 4.3 Valproic Acid 54.6 Medications Medications Current Medications Acetaminophen (Acetaminophen 325 Mg Tablet) 650 mg PO Q6H PRN PRN Reason: Headache/Pain Mild Scale (1-3) Last Admin: 09/03/23 09:37 Dose: 650 mg Al Hydroxide/Mg Hydroxide (Magnesium Hydrox/Alum Hydrox 30 Ml Oral.Susp) 30 ml PO Q6H PRN PRN Reason: Heartburn/Nausea Atorvastatin Calcium (Atorvastatin Calcium 10 Mg Tablet) 10 mg PO DAILY [facility] Last Admin: 09/06/23 08:28 Dose: 10 mg Cyclobenzaprine HCl (Cyclobenzaprine Hcl 10 Mg Tablet) 10 mg PO BID PRN PRN Reason: Spasms Divalproex Sodium (Divalproex Sodium Er 500 Mg Tab.Er.24h) 1,500 mg PO DAILY [facility] Last Admin: 09/06/23 08:28 Dose: 1,500 mg Hydroxyzine HCl (Hydroxyzine Hcl 25 Mg Tablet) 25 mg PO Q6H PRN PRN Reason: Anxiety Magnesium Hydroxide (Milk Of Magnesia 30 Ml Oral.Susp) 30 ml PO DAILY PRN PRN Reason: Constipation Melatonin (Melatonin 3 Mg Tablet) 6 mg PO BEDTIME PRN PRN Reason: Sleep Nicotine (Nicotine 21 Mg Patch.Td24) 21 mg TRANSDERMA DAILY PRN PRN Reason: smoking cessation Nicotine Polacrilex (Nicotine Polacrilex 2 Mg Gum) 4 mg BUCCAL Q2H PRN PRN Reason: Nicotine Cravings Olanzapine (Olanzapine 5 Mg Tablet) 5 mg PO TID PRN PRN Reason: agitation Olanzapine (Olanzapine 10 Mg Tablet) 20 mg PO DAILY [facility] Last Admin: 09/06/23 08:28 Dose: 20 mg Omeprazole (Omeprazole 20 Mg Capsule.Dr) 20 mg PO DAILY@0630 [facility] Last Admin: 09/06/23 08:28 Dose: 20 mg Quetiapine Fumarate (Quetiapine Fumarate 200 Mg Tablet) 200 mg PO BEDTIME PRN PRN Reason: insomnia Last Admin: 09/05/23 23:34 Dose: 200 mg Trazodone HCl (Trazodone Hcl 50 Mg Tablet) 50 mg PO BEDTIME MRX1 PRN PRN Reason: Insomnia Last Admin: 08/29/23 22:06 Dose: 50 mg Allergies Allergies Allergy/AdvReac Type Severity Reaction Status Date / Time haloperidol [From Haldol] Allergy Unknown Verified 08/29/23 18:19 fluoxetine [From Prozac] AdvReac Agitated Verified 05/02/21 23:37 Assessment & Plan Assessment & Plan (1) Schizoaffective disorder, bipolar type: Status: Acute Code(s): F25.0 - Schizoaffective disorder, bipolar type (2) Antisocial personality disorder: Status: Acute Code(s): F60.2 - Antisocial personality disorder Plan return to usual outpt medications regimen of zyprexa 20 mg and depakote 1500 mg QHS. some [facility] paperwork has clozaril 300 mg QHS listed rather than zyprexa 20 mg QHS, med rec includes zyprexa but not clozaril. pt's Hx with clozaril should be further elaborated. pt likely to need substantially higher dose of depakote than 1500 mg, however, in order to achieve a solidly therapeutic level. pt received invega sustenna 234 mg on 08/25. pt requests seroquel 200 mg QHS PRN insomnia, which is ordered. 08/30: Keeping to self, guarded. continue current tx plan. 08/31: guarded. brief during assessment. Pt reports feeling good ; pt stated, I don't need anything. My meds are okay . Nursing reported pt slept 8 hours last evening. continue current tx plan. 09/01: Guarded, keeping to self. Pt reports he is waiting for placement. medication compliant. continue current tx plan. 09/02: Pt reports feeling good ; pt stated, I'm not anxious or depressed. I don't feel like I need to be here. I want [facility] to put me in a motel . Guarded. listening to music with unit headphones. medication compliant. denies SI/HI/VH/AH. 09/03: Pt reports feeling good ; pt stated, I'm feeling frustrated because I'm a grown man but I have a guardian who I have never met and they control my money . listening to music with unit headphones. medication compliant. Pt reports sleeping well. denies SI/HI/VH/AH. Elevated LFT, will redraw labs today. 09/04: Pt reports feeling good ; pt stated, I spoke with my team and they told me they are going to get me a motel room . Tele-meeting today with PACT team and delinquency prevention social worker, Veronica, present. PACT team would like pt's medications switched to morning to be able to have visiting nurse administer them; pt aware and in agreeable. Pt reports sleeping well. Valproic acid level 54.6 AST 33 ALT 66 Ammonia level 50 09/05: stable. planning for DC saturday. continue current mgmt. Reason for continued inpatient stay Substantial Risk for: rapid decompensation Time Spent With Patient Time: Total time managing care of this patient today ____ minutes.
[2023-09-06 20:00] VITALS: RESP 16
--- NOTE | 2023-09-07 08:15 | P.PNPSI_ITS ---
Subjective Subjective Date of Service: 09/07/23 Reason For Visit: Schizoaffective disorder Subjective Notes: Briceño Order Interim History: Met with patient. Discussed with staff. Has been more irritable today. Talking to himself. Frustrated in the context of meeting with his community pact team and slammed door. Did appear paranoid regarding this. 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 Was clearly guarded and did not want to elaborate. Was also noted to be talking loudly to himself in his room. No evidence of SI. Is adherent with Briceño medications. Noted there is a plan for discharge Saturday. Medication Compliance: Yes Side effects from medications: No Attending Groups: No Review of Systems Acute medical concerns: No Review of Systems Review of Systems Unremarkable Mental Status Exam Mental Status Exam Narrative: casually dressed. Pacing. Talking loudly to himself in his room. Irritable. Guarded and paranoid. No evidence of SI or HI. Insight and judgment poor Diagnostics Vital Signs (24Hr): Vital Signs - 24 hr 09/06/23 20:00 Respiratory Rate 16 BMI result Body Mass Index 31.9 Labs 08/30/23 08:30 Medications Medications Current Medications Acetaminophen (Acetaminophen 325 Mg Tablet) 650 mg PO Q6H PRN PRN Reason: Headache/Pain Mild Scale (1-3) Last Admin: 09/03/23 09:37 Dose: 650 mg Al Hydroxide/Mg Hydroxide (Magnesium Hydrox/Alum Hydrox 30 Ml Oral.Susp) 30 ml PO Q6H PRN PRN Reason: Heartburn/Nausea Atorvastatin Calcium (Atorvastatin Calcium 10 Mg Tablet) 10 mg PO DAILY [facility] Last Admin: 09/06/23 08:28 Dose: 10 mg Cyclobenzaprine HCl (Cyclobenzaprine Hcl 10 Mg Tablet) 10 mg PO BID PRN PRN Reason: Spasms Divalproex Sodium (Divalproex Sodium Er 500 Mg Tab.Er.24h) 1,500 mg PO DAILY [facility] Last Admin: 09/06/23 08:28 Dose: 1,500 mg Hydroxyzine HCl (Hydroxyzine Hcl 25 Mg Tablet) 25 mg PO Q6H PRN PRN Reason: Anxiety Magnesium Hydroxide (Milk Of Magnesia 30 Ml Oral.Susp) 30 ml PO DAILY PRN PRN Reason: Constipation Melatonin (Melatonin 3 Mg Tablet) 6 mg PO BEDTIME PRN PRN Reason: Sleep Nicotine (Nicotine 21 Mg Patch.Td24) 21 mg TRANSDERMA DAILY PRN PRN Reason: smoking cessation Nicotine Polacrilex (Nicotine Polacrilex 2 Mg Gum) 4 mg BUCCAL Q2H PRN PRN Reason: Nicotine Cravings Olanzapine (Olanzapine 5 Mg Tablet) 5 mg PO TID PRN PRN Reason: agitation Olanzapine (Olanzapine 10 Mg Tablet) 20 mg PO DAILY [facility] Last Admin: 09/06/23 08:28 Dose: 20 mg Omeprazole (Omeprazole 20 Mg Capsule.Dr) 20 mg PO DAILY@0630 [facility] Last Admin: 09/06/23 08:28 Dose: 20 mg Quetiapine Fumarate (Quetiapine Fumarate 200 Mg Tablet) 200 mg PO BEDTIME PRN PRN Reason: insomnia Last Admin: 09/05/23 23:34 Dose: 200 mg Trazodone HCl (Trazodone Hcl 50 Mg Tablet) 50 mg PO BEDTIME MRX1 PRN PRN Reason: Insomnia Last Admin: 08/29/23 22:06 Dose: 50 mg Allergies Allergies Allergy/AdvReac Type Severity Reaction Status Date / Time haloperidol [From Haldol] Allergy Unknown Verified 08/29/23 18:19 fluoxetine [From Prozac] AdvReac Agitated Verified 05/02/21 23:37 Assessment & Plan Assessment & Plan (1) Schizoaffective disorder, bipolar type: Status: Acute Code(s): F25.0 - Schizoaffective disorder, bipolar type (2) Antisocial personality disorder: Status: Acute Code(s): F60.2 - Antisocial personality disorder Plan return to usual outpt medications regimen of zyprexa 20 mg and depakote 1500 mg QHS. some [facility] paperwork has clozaril 300 mg QHS listed rather than zyprexa 20 mg QHS, med rec includes zyprexa but not clozaril. pt's Hx with clozaril should be further elaborated. pt likely to need substantially higher dose of depakote than 1500 mg, however, in order to achieve a solidly therapeutic level. pt received invega sustenna 234 mg on 08/25. pt requests seroquel 200 mg QHS PRN insomnia, which is ordered. 08/30: Keeping to self, guarded. continue current tx plan. 08/31: guarded. brief during assessment. Pt reports feeling good ; pt stated, I don't need anything. My meds are okay . Nursing reported pt slept 8 hours last evening. continue current tx plan. 09/01: Guarded, keeping to self. Pt reports he is waiting for placement. medication compliant. continue current tx plan. 09/02: Pt reports feeling good ; pt stated, I'm not anxious or depressed. I don't feel like I need to be here. I want [facility] to put me in a motel . Guarded. listening to music with unit headphones. medication compliant. denies SI/HI/VH/AH. 09/03: Pt reports feeling good ; pt stated, I'm feeling frustrated because I'm a grown man but I have a guardian who I have never met and they control my money . listening to music with unit headphones. medication compliant. Pt reports sleeping well. denies SI/HI/VH/AH. Elevated LFT, will redraw labs today. 09/04: Pt reports feeling good ; pt stated, I spoke with my team and they told me they are going to get me a motel room . Tele-meeting today with PACT team and social worker school, Veronica, present. PACT team would like pt's medications switched to morning to be able to have visiting nurse administer them; pt aware and in agreeable. Pt reports sleeping well. Valproic acid level 54.6 AST 33 ALT 66 Ammonia level 50 09/05: stable. planning for DC saturday. continue current mgmt. 09/06: is psychotic. Is adherent with Briceño medications. Noted there is a plan for discharge Saturday. Team working with PACT team Reason for continued inpatient stay Substantial Risk for: inability to function and rapid decompensation Time Spent With Patient Time: Total time managing care of this patient today ____ minutes.
[2023-09-07] MEDS: Divalproex Sodium ER 500 MG TAB.ER.24H 1500 MG PO (08:41)
[2023-09-07] MEDS: OLANZapine 10 MG TABLET 20 MG PO (08:42)
[2023-09-07] MEDS: Atorvastatin Calcium 10 MG TABLET PO (08:42)
[2023-09-07] MEDS: Omeprazole 20 MG CAPSULE.DR PO (08:43)
[2023-09-07] MEDS: Acetaminophen 325 MG TABLET 650 MG PO (20:54)
[2023-09-07] MEDS: Cyclobenzaprine HCl 10 MG TABLET PO (20:55)
[2023-09-07] MEDS: Melatonin 3 MG TABLET 6 MG PO (20:55)
[2023-09-07] MEDS: QUEtiapine Fumarate 200 MG TABLET PO (20:55)
[2023-09-07] MEDS: traZODone HCL 50 MG TABLET PO (20:55)
[2023-09-08] MEDS: Atorvastatin Calcium 10 MG TABLET PO (08:46)
[2023-09-08] MEDS: Divalproex Sodium ER 500 MG TAB.ER.24H 1500 MG PO (08:46)
[2023-09-08] MEDS: Omeprazole 20 MG CAPSULE.DR PO (08:46)
[2023-09-08] MEDS: OLANZapine 10 MG TABLET 20 MG PO (08:46)
--- NOTE | 2023-09-08 10:29 | P.PNPSI_ITS ---
Subjective Subjective Date of Service: 09/08/23 Reason For Visit: Schizoaffective disorder Interim History: Met with patient. Discussed with staff. Much more pleasant today. In room. Listening to music. Calm. Talking about rock music and groups. Less paranoid and less internally preoccupied. No Hi or SI. Is adherent with Briceño medications. Medication Compliance: Yes Side effects from medications: No Attending Groups: No Review of Systems Acute medical concerns: No Review of Systems Review of Systems Unremarkable Mental Status Exam Mental Status Exam Narrative: casually dressed. Relaxing in room listening to music. Less guarded and paranoid. No SI or HI. Insight and judgment limited Diagnostics Vital Signs (24Hr): BMI result Body Mass Index 31.9 Labs 08/30/23 08:30 Medications Medications Current Medications Acetaminophen (Acetaminophen 325 Mg Tablet) 650 mg PO Q6H PRN PRN Reason: Headache/Pain Mild Scale (1-3) Last Admin: 09/07/23 20:54 Dose: 650 mg Al Hydroxide/Mg Hydroxide (Magnesium Hydrox/Alum Hydrox 30 Ml Oral.Susp) 30 ml PO Q6H PRN PRN Reason: Heartburn/Nausea Atorvastatin Calcium (Atorvastatin Calcium 10 Mg Tablet) 10 mg PO DAILY [facility] Last Admin: 09/08/23 08:46 Dose: 10 mg Cyclobenzaprine HCl (Cyclobenzaprine Hcl 10 Mg Tablet) 10 mg PO BID PRN PRN Reason: Spasms Last Admin: 09/07/23 20:55 Dose: 10 mg Divalproex Sodium (Divalproex Sodium Er 500 Mg Tab.Er.24h) 1,500 mg PO DAILY [facility] Last Admin: 09/08/23 08:46 Dose: 1,500 mg Hydroxyzine HCl (Hydroxyzine Hcl 25 Mg Tablet) 25 mg PO Q6H PRN PRN Reason: Anxiety Magnesium Hydroxide (Milk Of Magnesia 30 Ml Oral.Susp) 30 ml PO DAILY PRN PRN Reason: Constipation Melatonin (Melatonin 3 Mg Tablet) 6 mg PO BEDTIME PRN PRN Reason: Sleep Last Admin: 09/07/23 20:55 Dose: 6 mg Nicotine (Nicotine 21 Mg Patch.Td24) 21 mg TRANSDERMA DAILY PRN PRN Reason: smoking cessation Nicotine Polacrilex (Nicotine Polacrilex 2 Mg Gum) 4 mg BUCCAL Q2H PRN PRN Reason: Nicotine Cravings Olanzapine (Olanzapine 5 Mg Tablet) 5 mg PO TID PRN PRN Reason: agitation Olanzapine (Olanzapine 10 Mg Tablet) 20 mg PO DAILY [facility] Last Admin: 09/08/23 08:46 Dose: 20 mg Omeprazole (Omeprazole 20 Mg Capsule.) 20 mg PO DAILY@0630 [facility] Last Admin: 09/08/23 08:46 Dose: 20 mg Quetiapine Fumarate (Quetiapine Fumarate 200 Mg Tablet) 200 mg PO BEDTIME PRN PRN Reason: insomnia Last Admin: 09/07/23 20:55 Dose: 200 mg Trazodone HCl (Trazodone Hcl 50 Mg Tablet) 50 mg PO BEDTIME MRX1 PRN PRN Reason: Insomnia Last Admin: 09/07/23 20:55 Dose: 50 mg Allergies Allergies Allergy/AdvReac Type Severity Reaction Status Date / Time haloperidol [From Haldol] Allergy Unknown Verified 08/29/23 18:19 fluoxetine [From Prozac] AdvReac Agitated Verified 05/02/21 23:37 Assessment & Plan Assessment & Plan (1) Schizoaffective disorder, bipolar type: Status: Acute Code(s): F25.0 - Schizoaffective disorder, bipolar type (2) Antisocial personality disorder: Status: Acute Code(s): F60.2 - Antisocial personality disorder Plan return to usual outpt medications regimen of zyprexa 20 mg and depakote 1500 mg QHS. some [facility] paperwork has clozaril 300 mg QHS listed rather than zyprexa 20 mg QHS, med rec includes zyprexa but not clozaril. pt's Hx with clozaril should be further elaborated. pt likely to need substantially higher dose of depakote than 1500 mg, however, in order to achieve a solidly therapeutic level. pt received invega sustenna 234 mg on 08/25. pt requests seroquel 200 mg QHS PRN insomnia, which is ordered. 08/30: Keeping to self, guarded. continue current tx plan. 08/31: guarded. brief during assessment. Pt reports feeling good ; pt stated, I don't need anything. My meds are okay . Nursing reported pt slept 8 hours last evening. continue current tx plan. 09/01: Guarded, keeping to self. Pt reports he is waiting for placement. medication compliant. continue current tx plan. 09/02: Pt reports feeling good ; pt stated, I'm not anxious or depressed. I don't feel like I need to be here. I want [facility] to put me in a motel . Guarded. listening to music with unit headphones. medication compliant. denies SI/HI/VH/AH. 09/03: Pt reports feeling good ; pt stated, I'm feeling frustrated because I'm a grown man but I have a guardian who I have never met and they control my money . listening to music with unit headphones. medication compliant. Pt reports sleeping well. denies SI/HI/VH/AH. Elevated LFT, will redraw labs today. 09/04: Pt reports feeling good ; pt stated, I spoke with my team and they told me they are going to get me a motel room . Tele-meeting today with PACT team and social services, Veronica, present. PACT team would like pt's medications switched to morning to be able to have visiting nurse administer them; pt aware and in agreeable. Pt reports sleeping well. Valproic acid level 54.6 AST 33 ALT 66 Ammonia level 50 09/05: stable. planning for DC saturday. continue current mgmt. 09/06: is psychotic. Is adherent with Briceño medications. Noted there is a plan for discharge Saturday. Team working with PACT team 09/07: doing better. Noted there is a plan for discharge Saturday. Team working with PACT team. Reason for continued inpatient stay Substantial Risk for: rapid decompensation Time Spent With Patient Time: Total time managing care of this patient today ____ minutes.
[2023-09-08 20:00] VITALS: RESP 18
[2023-09-09] MEDS: traZODone HCL 50 MG TABLET PO (02:18)
[2023-09-09] MEDS: Melatonin 3 MG TABLET 6 MG PO (02:18)
[2023-09-09] MEDS: Cyclobenzaprine HCl 10 MG TABLET PO (02:18)
[2023-09-09] MEDS: QUEtiapine Fumarate 200 MG TABLET PO (02:18)
[2023-09-09] MEDS: OLANZapine 10 MG TABLET 20 MG PO (08:22)
[2023-09-09] MEDS: Omeprazole 20 MG CAPSULE.DR PO (08:22)
[2023-09-09] MEDS: Divalproex Sodium ER 500 MG TAB.ER.24H 1500 MG PO (08:22)
[2023-09-09] MEDS: Atorvastatin Calcium 10 MG TABLET PO (08:22)
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
== END 2023-09-09 11:30 | disposition home or self-care (01) | DRG 750 ==
PROVIDERS: Psychiatry & Neurology Psychiatry; Registered Nurse; Admitting Provider Psychiatry & Neurology Psychiatry; Visit Provider Psychiatry & Neurology Psychiatry
DX: F25.1 Schizoaffective disorder, depressive type (principal); E78.5 Hyperlipidemia, unspecified; F60.2 Antisocial personality disorder; K21.9 Gastro-esophageal reflux disease without esophagitis; Z87.891 Personal history of nicotine dependence; Z79.899 Other long term (current) drug therapy
CPT/HCPCS: 36415; 80053; 80061; 80076; 80164; 82140; 83036

== ENCOUNTER → 2023-08-29 17:44 | Outpatient (BNV) | payer MEDICAID, SELFPAY | PROVIDERS: Admitting Provider Psychiatry & Neurology Psychiatry; Visit Provider Student in an Organized Health Care Education/Training Program | DX: Z00.8 Encounter for other general examination (principal) | CPT/HCPCS: 99222 ==

== ENCOUNTER → 2023-08-29 17:44 | Outpatient (BNV) | payer OTHER, SELFPAY | PROVIDERS: Admitting Provider Psychiatry & Neurology Psychiatry; Visit Provider Psychiatry & Neurology Psychiatry | DX: F60.2 Antisocial personality disorder (principal); F25.0 Schizoaffective disorder, bipolar type | CPT/HCPCS: 99231; 99232; 99233 ==

== ENCOUNTER 2024-08-18 02:12 | Inpatient (IN) | payer MEDICAID, SELFPAY ==
[2024-08-18] VITALS (7 sets, daily range): BP systolic 98–126; BP diastolic 57–68; PULSE 73–127; RESP 16–34; TEMP 36.1–37.7; O2SAT 95–99; BMI 27.1; BMI 29.3
--- NOTE | ~2024-08-18 | XR_ITS ---
CLINICAL HISTORY: Leukocytosis 1 view chest x-ray Comparison: None provided Findings: No consolidation or effusion. Heart size is normal. No acute fracture. IMPRESSION: 1. No acute findings. This document has been electronically signed by: Ruiz Dubose MD on 08/18/2024 05:57:21
--- NOTE | 2024-08-18 02:54 | ECG_ITS ---
Test Reason : MEDICAL CLEARANCE Blood Pressure : */* mmHG Vent. Rate : 101 BPM Atrial Rate : 101 BPM P-R Int : 160 ms QRS Dur : 98 ms QT Int : 362 ms P-R-T Axes : 55 45 52 degrees QTcB Int : 469 ms Sinus tachycardia Possible Left atrial enlargement Borderline ECG When compared with ECG of 10-Dec-2016 11:13, No significant change was found Referred By: Inocencia Duggan Electronically Signed By: SAMUEL SHELTON MD
--- NOTE | 2024-08-18 02:56 | ED_ITS ---
HPI - Psych General Chief Complaint: Psychiatric Symptoms Stated Complaint: PSYCH EVAL Time Seen by Provider: 08/18/24 02:53 Source: patient and EMS Mode of arrival: EMS Limitations: no limitations History of Present Illness ED Provider: DR. Duggan HPI Narrative: 48-year-old male with history of schizoaffective disorder and bipolar with multiple mental hospitalization. Brought in by ambulance after he was found wandering streets and walking all day in the street, unknown compliance with his psych medication, patient at this point declined SI, HI or hallucination. Related Data Previous Rx's ?Medication ?Instructions ?Recorded paliperidone palmitate 234 mg/1.5 234 mg (1.5 mL) IM Q 30D 30 days 05/29/21 mL intramuscular syringe (Invega #1.5 mL Sustenna) acetaminophen 325 mg tablet 650 mg (2 x 325 mg) PO Q6H PRN 09/09/23 (Tylenol) Headache/Pain Mild Scale (1- 3) 30 days #60 tabs atorvastatin 10 mg tablet (Lipitor) 10 mg PO DAILY 30 days #30 tabs 09/09/23 cyclobenzaprine 5 mg tablet 10 mg (2 x 5 mg) PO BID DE N Spasms 09/09/23 30 days #60 tabs divalproex 500 mg tablet,extended 1,500 mg (3 x 500 mg ) PO DAILY 30 09/09/23 release 24 hr (Depakote ER) days #90 tabs melatonin 3 mg tablet 6 mg (2 x 3 mg) PO BEDTIME P RN 09/09/23 Sleep 30 days #60 tabs olanzapine 20 mg tablet (Zyprexa) 20 mg PO DAILY 30 da ys #30 tabs 09/09/23 pantoprazole 40 mg tablet,delayed 40 mg PO DAILY 30 da ys #30 tabs 09/09/23 release quetiapine 200 mg tablet 200 mg PO BEDTIME PRN insomn ia 30 09/09/23 days #30 tabs trazodone 50 mg tablet 50 mg PO BEDTIME MRX1 PRN In somnia 09/09/23 30 days #50 tabs Allergies Allergy/AdvReac Type Severity Reaction Status Date / Time haloperidol (From Haldol) Allergy Unknown Verified 08/18/24 02:24 fluoxetine (From Prozac) AdvReac Agitated Verified 08/18/24 02:24 Review of Systems 2 Review of Systems: All other systems are reviewed and are negative Constitutional: Reports as per HPI and Reports no additional constitutional complaints Eyes: Reports as per HPI and Reports no additional eye complaints Reports system reviewed and no additional complaints, except as documented Cardiovascular: Reports as per HPI and Reports no additional cardiovascular complaints Respiratory: Reports as per HPI and Reports no additional respiratory complaints Gastrointestinal: Reports as per HPI and Reports no additional gastrointestinal complaints Genitourinary: Reports no additional female genitourinary complaints Musculoskeletal: Reports no additional musculoskeletal complaints Skin/Breast: Reports system reviewed and no additional complaints, except as docu Psychiatric: Reports no additional psychiatric complaints Endocrine: Reports no additional endocrine complaints Hematologic/Lymphatic: Reports no additional hematologic/lymphatic complaints Allergic/Immunologic: Reports no additional allergic/immunologic complaints Reports system reviewed and no additional complaints, except as documented and Reports Abnormal speech present [facility] Past Medical History Medical History Antisocial personality disorder Schizophrenia, paranoid type Social History Social History Household Members: Unknown / Unable to assess Household Members Other:: recently at respite Housing: Homeless Do you presently have visiting nurse or other home services: Yes Patient Tobacco Use Status: Former Tobacco user Tobacco use type: Cigarette Smoked in Last 30 Days: Yes e-Cigarette/Vaping Use: Never Used Second Hand Smoke Exposure: Yes Use of substances other than those prescribed or required for medical reasons: No Substance Use Type: Marijuana Advance Directives: No Advance Directives Information Provided: Yes Do you have a plan to hurt others: No Plan service: No Sexual orientation: Straight/Heterosexual Physical Exam 2 Vital Signs: Vital Signs: Last Vital Signs Temp 98.9 F 08/18/24 02:28 Pulse 93 08/18/24 02:28 Resp 16 08/18/24 02:28 BP 108/67 08/18/24 02:28 Pulse Ox 97 08/18/24 02:28 O2 Del Method Room Air 08/18/24 02:28 BMI result Body Mass Index 27.1 Vital signs have been reviewed and appear to be correct. Blood pressure elevated. Heart rate normal. Respiratory rate normal. Temperature normal. Oxygen saturation normal. Appearance: Alert. Oriented X3. No acute distress. Head: Normal external exam. Normocephalic. Atraumatic. No Pan signs noted. No raccoon eyes noted Eyes: PERRLA. EOMI. Conjunctiva and sclera normal. Eyelids normal. ENT: TM's Normal. Pharynx normal. Uvula midline. Moist mucous membranes. No trismus noted. No drooling noted. No muffled voice noted. Neck: Normal inspection. Neck supple. FROM. No adenopathy. Thyroid Normal. No meningeal signs. No neck mass noted. CVS: Normal heart rate and rhythm. Heart sound normal. No murmurs noted. Pulses normal throughout. Respiratory: No respiratory distress. Painless inspiration. Breath sounds normal. No wheezes/rales/rhonchi noted. Chest nontender. No accessory muscle usage noted or decreased air movement noted. Abdomen: Soft and nontender. Bowel sounds normal in all 4 quadrants. No distention noted. No organomegaly noted. No visible injury noted. Back: No CVA tenderness. Full range of motion noted. Skin: Skin warm and dry. Normal skin color. Normal skin turgor. No rashes/lesions/lacerations noted. Extremities: No lower extremity edema. Extremities exhibit normal range of motion. Extremities nontender. Neuro: Oriented X 3. Cranial nerve exam: II-XII are grossly intact No motor deficit. No sensory deficit. Reflexes normal. Patient Orientation: Person, Place, Time and Situation, okay hygiene and grooming. Fair eye contact, attentive, no tics or tremors. Level of Consciousness: Awake, Appropriate and Alert Patient Behavior: Appropriate, Guarded, Cooperative and Anxious Mood Description: Constricted, Blunted and Apprehensive Affect Description: Constricted, Blunted and Apprehensive Patient Cognition Impaired: No Ability to Follow Directions: Excellent Speech Pattern: Clear, Appropriate and Spontaneous Speech, nonpressured, spontaneous with regular rate and rhythm, normal volume and prosody. No dysarthria. Memory Description: Intact, Immediate Intact and Short Term Intact Hallucinations: None Delusions: Not Present Thought Process: Intact Thought Content: positive for Intact, positive for Logical, denies Suicidal Ideation and denies Homicidal Ideation. Depressive Symptoms: Not present. Judgement and Insight: Limited but adequate. Course Reevaluation(s) Reevaluation #1: UTI patient meet sepsis criteria, start on ceftriaxone, will check culture and lactic acid, IV fluids. Severe hypokalemia 2.6, hyponatremia. will replete IV and p.o.. Patient will be admitted to medical. Time: 03:46 Medications Administered Discontinued Medications Generic Name Dose Route Start Last Admin Trade Name Jerome PRN Reason Stop Dose Admin Ceftriaxone Sodium 1 gm 08/18/24 03:39 08/18/24 04:03 Ceftriaxone Sodium 1 Gm Vial IVPUSH 08/18/24 03:40 1 gm ONCE ONE Administration Potassium Chloride 10 meq in 100 mls @ 100 mls/hr 08/18/24 03:39 08/18/24 05:37 Potassium Chloride/H20 IV 08/18/24 04:38 Infused ONCE ONE Infusion Lactated Ringer's 1,000 mls @ 999 mls/hr 08/18/24 03:45 08/18/24 04:08 Lr IV 08/18/24 04:45 999 mls/hr .Q1H1M GUSTAVO Administration Potassium Chloride 40 meq 08/18/24 03:39 08/18/24 04:07 Potassium Chloride Packet 20 Meq Packet PO 08/18/24 03:40 40 meq ONCE ONE Administration Medical Decision Making Differential Diagnosis Differential Diagnoses: The differential diagnosis associated with the presentation includes (Medical clearance, acute psychosis, electrolyte derangement, severe anemia.) Admission/Observation Consideration of admission/observation: Escalation of care including admission/observation considered Consult Healthcare Provider Management of the patient was discussed with: Hospitalist (Dr. Floyd) Lab Data MDM Lab Attestation statement: I reviewed the patient's lab results. 08/18/24 03:07 08/18/24 03:07 Labs: Lab Results 08/18/24 08/18/24 Range/Units 03:07 04:00 WBC 14.4 H (4.8-10.8) X10*3/uL RBC 4.23 L (4.60-5.80) X10*6/uL Hgb 12.1 L (14.0-18.0) g/dl Hct 32.4 L (42.0-52.0) % MCV 76.6 L (80.0-98.0) fL MCH 28.6 (27.0-33.0) pg MCHC 37.3 H (31.0-36.0) g/dl RDW 13.1 (11.0-16.0) % Plt Count 181 (160-400) X10*3/uL MPV 9.6 (9.4-12.4) fL Immature Gran % (Auto) 0.5 H (0.0-0.4) % Neut % (Auto) 78.3 H (45-73) % Lymph % (Auto) 11.5 L (20-40) % [place] % (Auto) 9.5 (2-11) % Eos % (Auto) 0.1 (0-4) % Baso % (Auto) 0.1 (0-2) % Lymph # (Auto) 1.7 (1.2-4.9) X10*3/uL [place] # (Auto) 1.4 H (0.1-1.2) X10*3/uL Eos # (Auto) 0.0 (0.0-0.4) X10*3/uL Baso # (Auto) 0.0 (0.0-0.2) X10*3/uL Abs Immat Gran (auto) 0.07 H (0.00-0.03) X10*3/uL Absolute Neuts (auto) 11.3 H (2.0-8.3) x10*3/uL Absolute Nucleated RBC 0.000 (0.0-0.012) X10*3/uL Nucleated RBC % (auto) 0.0 (0.0-0.2) /100WBC Sodium 124 L (135-145) mmol/L Potassium 2.6 L* D (3.3-5.1) mmol/L Chloride 90 L (96-108) mmol/L Carbon Dioxide 21 L (22-29) mmol/L Anion Gap 16 (12-20) BUN < 3 L (9-16) mg/dL Creatinine 0.59 (0.5-1.4) mg/dL Estim Creat Clear Calc 168.0 Estimated GFR > 60 Random Glucose 124 H (60-115) mg/dL Estimat Average Glucose 103 mg/dL Hemoglobin A1c % 5.2 (<6.0) % Lactic Acid 1.1 (0.5-2.0) mmol/L Calcium 9.0 (8.4-10.2) mg/dL Total Bilirubin 0.6 (0.0-1.0) mg/dL Direct Bilirubin 0.2 (0.0-0.5) mg/dL AST 29 (5-37) U/L ALT 17 (0-40) U/L Alkaline Phosphatase 48 (39-117) U/L Total Protein 6.6 (6.5-8.0) g/dL Albumin 4.3 (3.5-5.0) g/dL Lipase 9 (8-78) U/L Urine Color Yellow Urine Appearance Turbid Urine pH 6.5 (5.0-9.0) Ur Specific [place] <= 1.005 (1.005-1.025) Urine Protein 30 (1+) H (Neg-Trace) mg/dL Urine Glucose (UA) Negative (Negative) mg/dL Urine Ketones 15 (Negative) mg/dL Urine Blood Small (1+) H (Negative) Urine Nitrite Positive H (Negative) Ur Leukocyte Esterase Large (3+) H (Negative) Urine RBC 0-2 (0-2) /HPF Urine WBC >50 H (0-5) /HPF Ur Squamous Epith Cells 0-2 (0-2) /HPF Urine Bacteria 4+ (None Seen) Hyaline Casts 3-5 (0-2) /LPF Independent Interpretation I performed an independent interpretation of an: EKG (Sinus tachycardia at 101, normal axis deviation, normal intervals, no ST-T changes) and Plain X-Ray (Chest: No acute pathology.) Radiology Impression Discussion of test interpretation with radiology: I have reviewed the radiologist's reading. Discharge Plan Discharge Clinical Impression: Acute UTI, Schizophrenia, paranoid type, Acute hyponatremia, Hypokalemia Patient Disposition: Admitted As Inpatient Interventions: [place]-Suicide Risk Severity Scale Last Done: 08/18/24 02:46
[2024-08-18 03:19] LABS: Hematocrit 32.4 % (42.0-52.0); Hemoglobin 12.1 g/dl (14.0-18.0); MANUAL DIFF FLAG NO; Mean Corpuscular HGB Conc 37.3 g/dl (31.0-36.0); Mean Corpuscular Hemoglobin 28.6 pg (27.0-33.0); Mean Corpuscular Volume 76.6 fL (80.0-98.0); Red Blood Count 4.23 X10*6/uL (4.60-5.80); White Blood Count 14.4 X10*3/uL (4.8-10.8)
[2024-08-18 03:20] LABS: Imm Gran Abs Auto 0.07 X10*3/uL (0.00-0.03); Imm Gran Pct Auto 0.5 % (0.0-0.4); Lymphocytes Absolute Auto 1.7 X10*3/uL (1.2-4.9); NRBC Abs Auto 0.000 X10*3/uL (0.0-0.012); NRBC Pct Auto 0.0 /100WBC (0.0-0.2); Platelet Count 181 X10*3/uL (160-400)
[2024-08-18 03:21] LABS: Appearance Urine Turbid; Glucose Urine UA Negative (Negative); PH 6.5 (5.0-9.0); Specific Gravity - Urine <= 1.005 (1.005-1.025); UMIC TRIGGER UACC YES
[2024-08-18 03:33] LABS: UACC Culture Trigger YES
[2024-08-18 03:37] LABS: Alanine Aminotransferase 17 U/L (0-40); Albumin Level 4.3 g/dL (3.5-5.0); Alkaline Phosphatase 48 U/L (39-117); Anion Gap 16 (12-20); Aspartate Amino Transferase 29 U/L (5-37); Blood Urea Nitrogen < 3 mg/dL (9-16); Calcium 9.0 mg/dL (8.4-10.2); Carbon Dioxide 21 mmol/L (22-29); Chloride 90 mmol/L (96-108); Creatinine Clr Calc Pharmacy 168.0; Estimated Glomerular Filt Rate > 60; Lipase 9 U/L (8-78); Potassium 2.6 mmol/L (3.3-5.1); Sodium 124 mmol/L (135-145); Total Protein 6.6 g/dL (6.5-8.0)
[2024-08-18] MEDS: Potassium Chloride/H20 10 MEQ/100 ML PIGGYBACK 100 MEQ IV (04:07)
[2024-08-18] MEDS: Potassium Chloride Packet 20 MEQ PACKET 40 MEQ PO (04:07)
[2024-08-18] MEDS: Lactated Ringers 1,000 ML 999 ML IV (04:08)
--- NOTE | 2024-08-18 04:58 | P.HPHOSP_ITS ---
History of Present Illness Date of Service: 08/18/24 Attending physician on admission: Mikal Floyd Chief Complaint: AMS Patient is a 48-year-old male with a past medical history significant for schizoaffective disorder and bipolar with multiple psychiatric hospitalizations, who presented to the ED due to altered mental status. The patient was found walking in the street and was disoriented, alert and oriented x2. Per EMS the patient has a history of questionable medication compliance and he was walking all day in complaining of leg cramping. The patient reports that he has had some dysuria and has been eating and drinking normally but may not be hydrating enough due to the heat and staying outside with continuous walking. He denies any nausea, vomiting, upper respiratory symptoms or abdominal pain. He also does report diarrhea at least 1-2 times per day, sometimes with bright red blood. He denies any black stool. In the ED who was found to have sepsis with a urinary tract infection as well as electrolyte abnormalities, given IV fluids, started on ceftriaxone and patient will be admitted due to altered mental status, acute metabolic encephalopathy, sepsis and UTI. Review of Systems 2 Constitutional: Constitutional: Denies body ache(s), Denies chills, Denies fatigue, Denies fever(s) and Denies headache(s) Eyes: Eyes: Denies change in vision and Denies loss of vision ENT: Denies headache(s), Denies nasal congestion and Denies sore throat Cardiovascular: Cardiovascular: Denies chest pain, Denies rapid heart rate, Denies leg edema, Denies lightheadedness and Denies dyspnea Respiratory: Respiratory: Denies chest congestion, Denies cough, Denies dyspnea and Denies wheezing Gastrointestinal: Gastrointestinal: Denies abdominal pain, Reports hematochezia, Reports diarrhea, Denies nausea and Denies vomiting Genitourinary: Genitourinary: Reports dysuria Musculoskeletal: Musculoskeletal: Reports back pain (chronic low back) and Denies myalgias Integumentary/Breasts: Skin/Breast: Denies rash Neurologic: Denies headache(s) and Denies loss of vision Psychiatric: Psychiatric: Reports as per HPI Endocrine: Endocrine: Denies fatigue Hematologic/Lymphatic: Hematologic/Lymphatic: Denies easy bleeding and Denies easy bruising Allergic/Immunologic: Allergic/Immunologic: Denies wheezing [facility] Medical History Antisocial personality disorder Schizophrenia, paranoid type Functional capacity: independent ambulation Social History Household Members: Unknown / Unable to assess Household Members Other:: recently at respite Housing: Homeless Do you presently have visiting nurse or other home services: Yes Patient Tobacco Use Status: Former Tobacco user Tobacco use type: Cigarette Smoked in Last 30 Days: Yes e-Cigarette/Vaping Use: Never Used Second Hand Smoke Exposure: Yes Use of substances other than those prescribed or required for medical reasons: No Substance Use Type: Marijuana Advance Directives: No Advance Directives Information Provided: Yes Do you have a plan to hurt others: No Plan service: No Sexual orientation: Straight/Heterosexual Narrative: Smokes intermittently, no alcohol or drug use Meds Allergies Allergy/AdvReac Type Severity Reaction Status Date / Time haloperidol (From Haldol) Allergy Unknown Verified 08/18/24 02:24 fluoxetine (From Prozac) AdvReac Agitated Verified 08/18/24 02:24 Active Medications: Current Medications Acetaminophen (Acetaminophen 325 Mg Tablet) 650 mg PO Q6H PRN PRN Reason: Pain, Mild 1-3,fever,headache Calcium Carbonate (Calcium Carbonate 750 Mg Tab.Chew) 750 mg PO Q4H PRN PRN Reason: Heartburn Enoxaparin Sodium (Enoxaparin Sodium 40 Mg/0.4 Ml Syringe) 40 mg SUBCUT Q24H GUSTAVO Sodium Chloride (Ns) 1,000 mls @ 75 mls/hr IVCONT .[id number] GUSTAVO Magnesium Hydroxide (Milk Of Magnesia 30 Ml Oral.Susp) 30 ml PO DAILY PRN PRN Reason: Constipation Melatonin (Melatonin 3 Mg Tablet) 6 mg PO BEDTIME PRN PRN Reason: Insomnia Ondansetron HCl (Ondansetron Hcl 4 Mg/2 Ml Vial) 4 mg IVPUSH Q8H PRN PRN Reason: Nausea and Vomiting Sodium Chloride (0.9 % Sodium Chloride Flush 3 Ml Syringe) 3 ml IVFLUSH [facility] Physical Exam 2 Vital Signs and Narrative: Vital Signs: Last Vital Signs Temp 98.9 F 08/18/24 02:28 Pulse 93 08/18/24 02:28 Resp 16 08/18/24 02:28 BP 108/67 08/18/24 02:28 Pulse Ox 97 08/18/24 02:28 O2 Del Method Room Air 08/18/24 02:28 BMI result Body Mass Index 27.1 General: Alert and awake, oriented x3, no acute distress Resp: CTA bilaterally, no wheezing or crackles CVS: S1, S2, RRR GI: +BS, NT, no distention Skin: Warm, dry Neuro: Cranial nerves II-XII grossly intact bilaterally. Motor grossly intact bilaterally Extremities: No pitting edema Psych: Appropriate affect Results Labs 08/18/24 03:07 08/18/24 03:07 Labs: Laboratory Results - last 24 hr 08/18/24 08/18/24 03:07 04:00 MCV 76.6 L MCH 28.6 MCHC 37.3 H RDW 13.1 Plt Count 181 MPV 9.6 Immature Gran % (Auto) 0.5 H Neut % (Auto) 78.3 H Lymph % (Auto) 11.5 L [place] % (Auto) 9.5 Eos % (Auto) 0.1 Baso % (Auto) 0.1 Lymph # (Auto) 1.7 [place] # (Auto) 1.4 H Eos # (Auto) 0.0 Baso # (Auto) 0.0 Abs Immat Gran (auto) 0.07 H Absolute Neuts (auto) 11.3 H Absolute Nucleated RBC 0.000 Nucleated RBC % (auto) 0.0 Anion Gap 16 Estim Creat Clear Calc 168.0 Estimated GFR > 60 Random Glucose 124 H Lactic Acid 1.1 Calcium 9.0 Total Bilirubin 0.6 Direct Bilirubin 0.2 AST 29 ALT 17 Alkaline Phosphatase 48 Total Protein 6.6 Albumin 4.3 Lipase 9 Urine Color Yellow Urine Appearance Turbid Urine pH 6.5 Ur Specific [place] <= 1.005 Urine Protein 30 (1+) H Urine Glucose (UA) Negative Urine Ketones 15 Urine Blood Small (1+) H Urine Nitrite Positive H Ur Leukocyte Esterase Large (3+) H Urine RBC 0-2 Urine WBC >50 H Ur Squamous Epith Cells 0-2 Urine Bacteria 4+ Hyaline Casts 3-5 Assessment and Plan (1) Acute metabolic encephalopathy: Status: Acute (2) Sepsis: Status: Acute (3) Acute UTI: Status: Acute (4) Hypokalemia: Status: Acute (5) Hyponatremia: Status: Acute (6) Dehydration: Status: Acute (7) Anemia: Status: Acute (8) Tobacco use disorder: Status: Acute Plan Patient is a 48-year-old male with a past medical history significant for schizoaffective disorder and bipolar with multiple psychiatric hospitalizations, who presented to the ED due to altered mental status. The patient was found walking in the street and was disoriented, alert and oriented x2. Acute metabolic encephalopathy with sepsis secondary to acute UTI - WBC 14.4, tachycardic, lactic acid normal, blood cultures x2 pending, not severe sepsis - UA positive, culture pending - chest x-ray pending, no upper respiratory symptoms - started on ceftriaxone in ED, continue pending urine culture - follow CBC and BMP Hypokalemia, hyponatremia, secondary to dehydration - sodium 124, potassium 2.6, chloride 90, bicarb 21, no anion gap - given 1 L LR in ED, currently still receiving - given potassium 40 mEq p.o. and 10 mEq IV, still receiving IV - check BMP at 09:00 - monitor on telemetry Anemia, microcytic - hemoglobin 12.1, hematocrit 32.4 - patient reporting hematochezia - check occult blood stool, iron panel, folate and B12 - consider GI consult pending results - no need for blood transfusion at this time - monitor CBC Schizoaffective disorder/bipolar -- patient reports compliance - continue home meds Tobacco use disorder - nicotine gum - smoking cessation discussed and encouraged Med rec pending previously Full Code, patient altered at this time, we will keep Full code status until at baseline mentation VTE prophylaxis: Lovenox Patient with acute metabolic encephalopathy with sepsis secondary to UTI complicated by electrolyte abnormalities, requiring admission for at least 2 midnight stay for IV antibiotics, IV fluids and monitoring. Quality Stroke Does the patient have a stroke diagnosis?: No VTE Prior VTE?: No VTE Risk Level:: Medical - moderate - high VTE Device Contraindication: Treatment Not Indicated VTE Drug Contraindication: N/A - Med Ordered
[2024-08-18 05:46] LABS: Hemoglobin A1C 107.4191 umol/L; Total Hemoglobin (HGBA1C) 3239.9124 umol/L
--- NOTE | 2024-08-18 07:48 | PC.NURSE ---
Pt is A+Ox4, refusing all assessments and vital signs. PT sts he is going to be noncompliant and leave AMA. Pt educated on him having a low K and UTI and recommended to stay. Pt sts he will leave AMA. Provider notified.
[2024-08-18 08:53] LABS: Anion Gap 13 (12-20); Blood Urea Nitrogen 4 mg/dL (9-16); Calcium 9.2 mg/dL (8.4-10.2); Carbon Dioxide 24 mmol/L (22-29); Chloride 100 mmol/L (96-108); Creatinine Clr Calc Pharmacy 180.2; Estimated Glomerular Filt Rate > 60; Potassium 3.4 mmol/L (3.3-5.1); Sodium 134 mmol/L (135-145)
--- NOTE | 2024-08-18 08:53 | PHA.MEDREC ---
Addendum entered by Igor Stephens RPh 08/18/24 09:26: MED REC REVIEWED BY [facility] Original Note: Pharmacy Consult ? Medication Reconciliation Pharmacy has completed the medication reconciliation. Spoke with pt and pt stated he is only taking Depakote and Rispiridol at this time and nothing else, pt didnt know dose or how he was taking either of them. I asked where he fills them and he stated a [facility] pharmacy. I called pt pharmacy [facility] and [facility] since they are both in the same address ([address] [place] [address], [facility]) and I had to leave a voice mail for [facility] but I was able to get from [place] the pt just got Depakote ER 500mg tabs, taking 3 tabs (1500mg) daily and stated they have not filled Rispiridone since 2018 for the pt.
[2024-08-18 08:54] LABS: Anion Gap 12 (12-20); Blood Urea Nitrogen 4 mg/dL (9-16); Calcium 9.1 mg/dL (8.4-10.2); Carbon Dioxide 24 mmol/L (22-29); Chloride 101 mmol/L (96-108); Creatinine Clr Calc Pharmacy 177.0; Estimated Glomerular Filt Rate > 60; Iron 10 mcg/dL (45-160); Percent Iron Saturation 4 % (15-50); Potassium 3.4 mmol/L (3.3-5.1); Sodium 134 mmol/L (135-145); Total Iron Binding Capacity 285 mcg/dL (228-428); Unsaturated Iron Binding 275 ug/dL
[2024-08-18 09:29] LABS: Folate 8.9 ng/mL (> or = 4.0); Vitamin B12 492 pg/mL (200-900)
--- NOTE | 2024-08-18 10:40 | PC.NURSE ---
pt decided to stay in the hospitals is not leaving ama at this time, hospitalist notified
--- NOTE | 2024-08-18 10:58 | PC.NURSE ---
Pt no longer trying to leave AMA, calm and cooperative. No complaints at this time. Pt denies SI/HI and anxiety.
--- NOTE | 2024-08-18 11:14 | PM.EVENT ---
Event Note Date of Service: 08/18/24 Event Note: Seen and examined, admitted with hyponatremia, hypOkalemia and confusion. Presently not confused and threatening to leave AMA, spoke to him and willing to stay now. Sodium level is higher, K corrected. Hyponatremia likely due to Depakote. Psych consult to review meds, mag, check ammonia level. Time Spent With Patient Time: Total time managing care of this patient today ____ minutes.
[2024-08-18 11:34] LABS: Magnesium 1.5 mg/dL (1.6-2.6)
[2024-08-18 12:09] LABS: Ammonia 48 umol/L (13-55)
--- NOTE | 2024-08-18 12:44 | MHC.CM.PN ---
Addendum entered by Jaqueline Serrano 08/18/24 13:02: PCP verified and is Bill ECHEVERRIA at [facility]. Original Note: Pt self-care, he lives with a roommate, and is planning on moving to a 1 bedroom apt soon. Pt states his [facility] staff will likely be able to transport him home at discharge, but he may need assistance with a ride home if they are unable to transport him. Education provided on HCP, pt declines to complete one at this time. PCP: Pt is unsure of their name, states they are [place] [facility]
[2024-08-18] MEDS: 0.9 % Sodium Chloride Flush 3 ML SYRINGE IVFLUSH ×2 (14:17→20:02)
[2024-08-19 07:07] VITALS: BP 116/67; PULSE 63; RESP 18; TEMP 36.2; O2SAT 96
[2024-08-19 08:33] LABS: Hematocrit 35.7 % (42.0-52.0); Hemoglobin 12.5 g/dl (14.0-18.0); Mean Corpuscular HGB Conc 35.0 g/dl (31.0-36.0); Mean Corpuscular Hemoglobin 28.1 pg (27.0-33.0); Mean Corpuscular Volume 80.2 fL (80.0-98.0); NRBC Abs Auto 0.000 X10*3/uL (0.0-0.012); NRBC Pct Auto 0.0 /100WBC (0.0-0.2); Platelet Count 182 X10*3/uL (160-400); Red Blood Count 4.45 X10*6/uL (4.60-5.80); White Blood Count 7.8 X10*3/uL (4.8-10.8)
[2024-08-19 08:41] LABS: Anion Gap 12 (12-20); Blood Urea Nitrogen 5 mg/dL (9-16); Calcium 9.1 mg/dL (8.4-10.2); Carbon Dioxide 24 mmol/L (22-29); Chloride 107 mmol/L (96-108); Creatinine Clr Calc Pharmacy 206.7; Estimated Glomerular Filt Rate > 60; Potassium 3.5 mmol/L (3.3-5.1); Sodium 139 mmol/L (135-145)
[2024-08-19] MEDS: 0.9 % Sodium Chloride Flush 3 ML SYRINGE IVFLUSH (08:47)
[2024-08-19 09:01] LABS: OBS Int Ctl Valid YES; OBS1 NEGATIVE (NEGATIVE)
--- NOTE | 2024-08-19 09:32 | PM.DS ---
DS: Providers Provider Date of Service: 08/19/24 Date of admission: 08/18/24 04:51 Date of discharge: 08/19/24 Primary care physician: JACKI Molina Consults: 08/18/24 10:40 Consult to Psychiatry Routine Consulting Provider: [facility] [place] Covering Reason for consultation: schizophrenia DS: Diagnosis Discharge Diagnosis (1) Acute metabolic encephalopathy: Status: Acute (2) Sepsis: Status: Acute (3) Acute UTI: Status: Acute (4) Hypokalemia: Status: Acute (5) Hyponatremia: Status: Acute (6) Dehydration: Status: Acute (7) Anemia: Status: Acute (8) Tobacco use disorder: Status: Acute DS: Summary Hospital Course Hospital Course: Admission hpi Patient is a 48-year-old male with a past medical history significant for schizoaffective disorder and bipolar with multiple psychiatric hospitalizations, who presented to the ED due to altered mental status. The patient was found walking in the street and was disoriented, alert and oriented x2. Per EMS the patient has a history of questionable medication compliance and he was walking all day in complaining of leg cramping. The patient reports that he has had some dysuria and has been eating and drinking normally but may not be hydrating enough due to the heat and staying outside with continuous walking. He denies any nausea, vomiting, upper respiratory symptoms or abdominal pain. He also does report diarrhea at least 1-2 times per day, sometimes with bright red blood. He denies any black stool. In the ED who was found to have sepsis with a urinary tract infection as well as electrolyte abnormalities, given IV fluids, started on ceftriaxone and patient will be admitted due to altered mental status, acute metabolic encephalopathy, sepsis and UTI. hospital course Patient is a 48-year-old male with a past medical history significant for schizoaffective disorder and bipolar with multiple psychiatric hospitalizations, who presented to the ED due to altered mental status. The patient was found walking in the street and was disoriented, alert and oriented x2. Acute metabolic encephalopathy with sepsis secondary to acute UTI. He has been treated with Ceftriaxone, urine culture is pending. He has no fever, wbc are now 7.8 down from 14. Will transition to oral Ceftin for 250 mg twice daily for 10 days. Hypokalemia, resolved with IV and Po correction Hyponatremia, sodium level has corrected, suspect likely related to Depakote. Seen by Psych and they recommend reducing dose to 1000 mg bid and repeat bmp onoutpatient bais Anemia, microcytic hemoglobin 12.1, hematocrit 32.4, unchnaged Schizoaffective disorder/bipolar -- patient reports compliance only meds is Depakote which is now hold, pending Psych recommendation Tobacco use disorder smoking cessation discussed - smoking cessation discussed and encouraged Time Attestation Discharge Coordination Time (in mins): 45 Quality: Safe Use of Opioids Does Pt have an Active Cancer Diagnosis on the Problem List?: No Quality: Stroke Does the patient have a stroke diagnosis?: No Physical Exam Vital Signs: Vital Signs: Last Vital Signs Temp 97.2 F 08/19/24 07:07 Pulse 63 08/19/24 07:07 Resp 18 08/19/24 07:07 BP 116/67 08/19/24 07:07 Pulse Ox 96 08/19/24 07:07 O2 Del Method Room Air 08/19/24 07:07 BMI result Body Mass Index 29.3 Const: Other: General: AO X 3, no acute distress Resp: CTA bilateral CVS: S1,S2,RRR GI: +BS, NT, no distention Skin: No rash Neuro: motor grossly intact Psych: appropriate affect DS: Data Data Completed and Pending Labs on day of discharge: Laboratory Results - last 24 hr 08/18/24 08/18/24 08/18/24 08:28 11:55 16:28 WBC RBC Hgb Hct MCV MCH MCHC RDW Plt Count MPV Absolute Nucleated RBC Nucleated RBC % (auto) Sodium Potassium Chloride Carbon Dioxide Anion Gap BUN Creatinine Estim Creat Clear Calc Estimated GFR Random Glucose Calcium Magnesium 1.5 L Ammonia 48 Urine Osmolality 222 L Ur Random Sodium 30.0 Stool Occult Blood 08/19/24 08/19/24 08:20 08:30 WBC 7.8 RBC 4.45 L Hgb 12.5 L Hct 35.7 L MCV 80.2 MCH 28.1 MCHC 35.0 RDW 14.1 Plt Count 182 MPV 10.2 Absolute Nucleated RBC 0.000 Nucleated RBC % (auto) 0.0 Sodium 139 Potassium 3.5 Chloride 107 Carbon Dioxide 24 Anion Gap 12 BUN 5 L Creatinine 0.53 Estim Creat Clear Calc 206.7 Estimated GFR > 60 Random Glucose 101 Calcium 9.1 Magnesium Ammonia Urine Osmolality Ur Random Sodium Stool Occult Blood NEGATIVE Preliminary micro results at discharge 08/18/24 03:59 Blood Culture - Preliminary Blood - Venous No growth after 24 hours. 08/18/24 04:00 Blood Culture - Preliminary Blood - Venous No growth after 24 hours. Discharge Plan Discharge Anticipated Discharge Date/Time: 08/19/24 11:02 Patient Disposition: Left Against Medical Advice Discharge Diagnosis: UTI, metabolic encephalopathy, hypokalemia, hypo Referrals: Physician,Unknown J [Physician, Medical] - 1 Week Discharge Medications: Changed divalproex [Depakote ER] 500 mg tablet extended release 24 hr 1,000 mg PO DAILY 30 Days Qty: 90 0RF Discharge Orders: Discharge Order (Routine); Ordered 08/19/24 Ordered By: Baudilio Jj Diet: Advance to usual diet Activity on Discharge: As tolerated Stand Alone Forms: Against Medical Advice Print Language: Hungarian Care Plan Goals: recocvery from confusion, uti Health Concerns: confusion that is now resolved, UTI hyponatremia and Hypokalemia Plan of Treatment: Depakote dose reduced to 1000 mg daily Follow up with your prescriber for depakote and your primary care doctor regarding depokote possibly causing low sodium avoid drinking excess water no more than 1200 cc day Call your doctor for follow up as soon as possible and you should have labs work done on outpatient basis Assessment: see mercedez
[2024-08-19 10:31] LABS: Thyroid Stimulating Hormone 1.13 uIU/mL (0.32-4.0)
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
--- NOTE | 2024-08-19 11:33 | PM.EVENT ---
Event Note Date of Service: 08/19/24 Time Spent With Patient Time: Total time managing care of this patient today ____ minutes.
--- NOTE | 2024-08-19 13:10 | MHC.CM.PN ---
Patient has been medically cleared for dc to home today self care. TARI spoke with Guardian/Young @ [phone], who approved of the dc plan (home/self care today via LYFT). TARI spoke with Deion from [facility] @ [phone] and she has requested that the dc summary be faxed to [facility] @ [phone]. TARI has set up a LYFT ride for Patient's return to home today @ 2PM; MD & RN are aware.
--- NOTE | 2024-08-19 14:09 | MHC.CM.PN ---
TARI was informed by Rosalie @ [facility] that Patient's new Guardian is Reynaldo Nails. TARI called Reynaldo @ [phone] and left a detailed message informing him of the dc plan and requesting that Guardianship paperwork be faxed to TARI @ [phone].
== END 2024-08-19 14:00 | disposition home or self-care (01) | DRG 720 ==
LOC: HO.ED 03:50 → HO.EDOVER 05:42 → HO.IMC 12:34
PROVIDERS: Social Worker; Admitting Provider Physician Assistant; Emergency Provider Emergency Medicine; PCP Registered Nurse; Visit Provider Internal Medicine
DX: A41.9 Sepsis, unspecified organism (principal); G93.41 Metabolic encephalopathy; E87.1 Hypo-osmolality and hyponatremia; F20.0 Paranoid schizophrenia; E86.0 Dehydration; N39.0 Urinary tract infection, site not specified; D50.9 Iron deficiency anemia, unspecified; T42.6X5A Adverse effect of other antiepileptic and sedative-hypnotic drugs, initial encounter; E87.6 Hypokalemia; Z87.891 Personal history of nicotine dependence; Z79.899 Other long term (current) drug therapy
CPT/HCPCS: 36415; 71045; 80048; 80076; 81001; 82140; 82272; 82607; 82746; 83036; 83540; 83605; 83690; 83735; 83935; 84300; 84443; 85025; 85027; 87040; 87086; 87088; 87186; 93005; 99285; J0696; J1650; J3480; J7120

== ENCOUNTER → 2024-08-18 02:54 | Outpatient (BNV) | payer MEDICAID, SELFPAY | PROVIDERS: Admitting Provider Physician Assistant; Emergency Provider Emergency Medicine; Visit Provider Internal Medicine Cardiovascular Disease | DX: R00.0 Tachycardia, unspecified (principal) | CPT/HCPCS: 93010 ==

== ENCOUNTER → 2024-08-18 03:48 | Outpatient (BNV) | payer MEDICAID, SELFPAY | PROVIDERS: Admitting Provider Physician Assistant; Emergency Provider Emergency Medicine; Visit Provider Radiology Diagnostic Radiology | DX: R41.82 Altered mental status, unspecified (principal) | CPT/HCPCS: 71045 ==

== ENCOUNTER → 2024-08-18 04:51 | Outpatient (BNV) | payer MEDICAID, SELFPAY | PROVIDERS: Admitting Provider Physician Assistant; Emergency Provider Emergency Medicine; Visit Provider Internal Medicine | DX: G93.41 Metabolic encephalopathy (principal); A41.9 Sepsis, unspecified organism; N39.0 Urinary tract infection, site not specified; E87.6 Hypokalemia; E87.1 Hypo-osmolality and hyponatremia; E86.0 Dehydration; D64.9 Anemia, unspecified; F17.200 Nicotine dependence, unspecified, uncomplicated | CPT/HCPCS: 99223; 99239; 99499 ==